=== PATIENT | female | born 1990 | race Caucasian/White ===

== ENCOUNTER → 2019-10-16 12:00 | Outpatient (BNVA) | payer OTHER, SELFPAY | PROVIDERS: Family Provider Registered Nurse; PCP Registered Nurse; Visit Provider Obstetrics & Gynecology | DX: Z01.89 Encounter for other specified special examinations (principal) | CPT/HCPCS: 84315 ==

== ENCOUNTER 2019-10-25 12:25 | Outpatient (CLI) | payer OTHER, SELFPAY ==
[2019-10-25 12:43] VITALS: BP 140/80; PULSE 104; RESP 18; TEMP 37.1
[2019-10-25 12:49] VITALS: BMI 48.7
[2019-10-25 13:13] VITALS: BP 136/73; PULSE 92
--- NOTE | 2019-10-25 13:14 | USR_ITS ---
PROCEDURE INFORMATION: Exam: US , Limited Exam date and time: 10/25/2019 2:10 PM Age: 29 years old Clinical indication: Lmp or gestational age (in weeks): 26 weeks 3 days; Other: Vaginal bleeding; ; Patient HX: H/o and d&c TECHNIQUE: Imaging protocol: Real-time ultrasound of the maternal uterus with image documentation. Exam focused on the clinical indication. COMPARISON: [place] [id number] 09/25/2018 5:41 PM FINDINGS: GESTATION: Gestation: movement is visualized. Heart rate: heart rate is 131 bpm. Presentation: position is vertex. Placenta: Placenta is posterior and fundal without evidence of previa. Amniotic fluid: Largest Pocket of amniotic Fluid measured is 6.1 x 10.9 cm. Amniotic fluid is visually normal in appearance. MATERNAL: Cervix: Cervix is not well seen. US/US OB limited [id number] IMPRESSION: Single live intrauterine fetus with a heart rate of 131 bpm in vertex position. Normal movement visualized.
[2019-10-25 13:38] LABS: Add Urine Microscopic? YES; Bilirubin Urine Neg (NEGATIVE); Blood Urine Neg (Negative); Glucose Urine UA Norm (Normal); Ketones Urine Negative (Negative); Leukocyte Esterase Urine Negative (Negative); Nitrate Urine Negative (Negative); Protein Urine Neg (Negative); Specific Gravity, Urine 1.015 (1.005-1.030); Sulfosalicylic Acid Urine Negative; Urine Appearance SL Hazy (CLEAR); Urine Color Yellow (Yellow); Urobilinogen Urine Norm (Negative); WBC Urine 0-4 /hpf (0-5); pH Urine 8 (5-7)
[2019-10-25 13:39] LABS: Bacteria Urine TRACE
[2019-10-25 13:43] VITALS: BP 124/71; PULSE 84; RESP 17
--- NOTE | 2019-10-25 13:58 | PC.NURSE ---
EFM d/c per Dr Gr order, toco left on.
[2019-10-25 14:13] VITALS: BP 121/72; PULSE 93
[2019-10-25 14:44] VITALS: BP 124/65; PULSE 92
[2019-10-25 14:50] VITALS: BP 124/65; PULSE 92; RESP 17; TEMP 37
== END 2019-10-25 14:55 | disposition home or self-care (01) ==
LOC: OPOB 12:34 → OBGYN 14:48 → OPOB 10-29 12:47
PROVIDERS: Family Provider Registered Nurse; PCP Registered Nurse; Visit Provider Obstetrics & Gynecology
DX: O46.90 Antepartum hemorrhage, unspecified, unspecified trimester (principal); Z3A.00 Weeks of gestation of pregnancy not specified
CPT/HCPCS: 76815; 81003; 99211

== ENCOUNTER → 2019-11-09 10:09 | Outpatient (BNVA) | payer OTHER, SELFPAY | PROVIDERS: Family Provider Registered Nurse; PCP Registered Nurse; Visit Provider Obstetrics & Gynecology | DX: O16.3 Unspecified maternal hypertension, third trimester (principal); O99.213 Obesity complicating pregnancy, third trimester | CPT/HCPCS: 76816; 82950; 84315; 85027 ==

== ENCOUNTER → 2019-11-23 10:02 | Outpatient (BNVA) | payer OTHER, SELFPAY | PROVIDERS: Family Provider Registered Nurse; PCP Registered Nurse; Visit Provider Obstetrics & Gynecology | DX: O99.283 Endocrine, nutritional and metabolic diseases complicating pregnancy, third trimester (principal); E03.9 Hypothyroidism, unspecified; O24.419 Gestational diabetes mellitus in pregnancy, unspecified control; Z3A.29 29 weeks gestation of pregnancy | CPT/HCPCS: 83036; 84315; 84443 ==

== ENCOUNTER → 2019-11-30 11:16 | Outpatient (BNVA) | payer OTHER, SELFPAY | PROVIDERS: Family Provider Registered Nurse; PCP Registered Nurse; Referring Provider Obstetrics & Gynecology; Visit Provider Obstetrics & Gynecology | DX: Z34.90 Encounter for supervision of normal pregnancy, unspecified, unspecified trimester (principal) | CPT/HCPCS: 76816; 76819 ==

== ENCOUNTER → 2019-12-07 09:24 | Outpatient (BNVA) | payer OTHER, SELFPAY | PROVIDERS: Family Provider Registered Nurse; PCP Registered Nurse; Visit Provider Obstetrics & Gynecology | DX: Z34.90 Encounter for supervision of normal pregnancy, unspecified, unspecified trimester (principal) | CPT/HCPCS: 76816; 76819; 84315 ==

== ENCOUNTER → 2019-12-14 09:37 | Outpatient (BNVA) | payer OTHER, SELFPAY | PROVIDERS: Family Provider Registered Nurse; PCP Registered Nurse; Visit Provider Obstetrics & Gynecology | DX: Z36.89 Encounter for other specified antenatal screening (principal) | CPT/HCPCS: 76816; 76819 ==

== ENCOUNTER → 2019-12-23 13:55 | Outpatient (BNVA) | payer OTHER, SELFPAY | PROVIDERS: Family Provider Registered Nurse; PCP Registered Nurse; Visit Provider Obstetrics & Gynecology Female Pelvic Medicine and Reconstructive Surgery | DX: O10.913 Unspecified pre-existing hypertension complicating pregnancy, third trimester (principal); Z3A.37 37 weeks gestation of pregnancy | CPT/HCPCS: 76816; 76819; 84315 ==

== ENCOUNTER 2019-12-28 14:34 | Outpatient (CLI) | payer OTHER, SELFPAY ==
--- NOTE | 2019-12-28 14:15 | US_ITS ---
WS: [id number] [place] [id number] REASON FOR EXAM: terminal carman medication use for chronic hypertension FINDINGS: The cervix measured 4.57 cm appear to be closed. Phallic presentation is seen of the fetus. heart rate 164 beats for minute. Anterior placenta is noted. Femoral length 6.96 cm 35 weeks 5 days gestation. Abdominal circumference 32.61 cm 36 weeks 4 days gestation. Biparietal diameter the head 9.22 cm 37 weeks 3 days gestation. weight estimated 3000 g (6 lbs. 10 oz.) Head circumference 33.36 cm 38 weeks 1 day gestation. Amniotic fluid indices be normal Biophysical profile 05/21 No definite deformity of the parts are seen. [place]/ [place] [id number] IMPRESSION: Interuterine 37 weeks gestation due date January 18, 2020.
== END 2019-12-28 14:35 | disposition home or self-care (01) ==
LOC: RAD 14:38
PROVIDERS: Family Provider Registered Nurse; PCP Registered Nurse; Visit Provider Obstetrics & Gynecology Female Pelvic Medicine and Reconstructive Surgery
DX: O10.913 Unspecified pre-existing hypertension complicating pregnancy, third trimester (principal); Z3A.37 37 weeks gestation of pregnancy
CPT/HCPCS: 76816

== ENCOUNTER → 2020-01-04 08:19 | Outpatient (BNVA) | payer OTHER, SELFPAY | PROVIDERS: Family Provider Registered Nurse; PCP Registered Nurse; Visit Provider Obstetrics & Gynecology | DX: O10.919 Unspecified pre-existing hypertension complicating pregnancy, unspecified trimester (principal) | CPT/HCPCS: 76816; 76819; 84315; 87081 ==

== ENCOUNTER → 2020-01-07 10:26 | Outpatient (BNVA) | payer OTHER, SELFPAY | PROVIDERS: Family Provider Registered Nurse; PCP Registered Nurse; Visit Provider Obstetrics & Gynecology | DX: O24.410 Gestational diabetes mellitus in pregnancy, diet controlled (principal); O09.893 Supervision of other high risk pregnancies, third trimester; O99.213 Obesity complicating pregnancy, third trimester; O99.343 Other mental disorders complicating pregnancy, third trimester | CPT/HCPCS: 76816; 76819 ==

== ENCOUNTER 2020-01-10 17:18 | Outpatient (CLI) | payer OTHER, SELFPAY ==
[2020-01-10 17:38] VITALS: BP 131/72; PULSE 104
[2020-01-10 17:44] VITALS: BMI 48.6
[2020-01-10 17:52] VITALS: BP 146/85; PULSE 91
[2020-01-10 18:07] VITALS: BP 0/0
[2020-01-10 18:13] VITALS: BP 146/85; PULSE 91; RESP 18; TEMP 37
== END 2020-01-10 18:10 | disposition home or self-care (01) ==
LOC: OPOB 17:21 → OBGYN 18:03 → OPOB 01-11 09:00
PROVIDERS: Family Provider Registered Nurse; PCP Registered Nurse; Visit Provider Obstetrics & Gynecology Female Pelvic Medicine and Reconstructive Surgery
DX: O26.899 Other specified pregnancy related conditions, unspecified trimester (principal); Z3A.00 Weeks of gestation of pregnancy not specified; N89.8 Other specified noninflammatory disorders of vagina
CPT/HCPCS: 59025; 83986; 99211

== ENCOUNTER → 2020-01-11 09:01 | Outpatient (BNVA) | payer OTHER, SELFPAY | PROVIDERS: Family Provider Registered Nurse; PCP Registered Nurse; Visit Provider Obstetrics & Gynecology | DX: O10.013 Pre-existing essential hypertension complicating pregnancy, third trimester (principal) | CPT/HCPCS: 76816; 76819; 84315 ==

== ENCOUNTER 2020-01-17 14:03 | Outpatient (CLI) | payer OTHER, SELFPAY ==
[2020-01-17 14:15] VITALS: BMI 48.0
[2020-01-17 14:19] VITALS: BP 129/85; PULSE 107
[2020-01-17 14:49] VITALS: BP 126/76; PULSE 97
[2020-01-17 15:00] VITALS: BP 126/76; PULSE 107; RESP 18; TEMP 36.7
== END 2020-01-17 15:00 | disposition home or self-care (01) ==
LOC: OPOB 14:04 → OBGYN 14:14
PROVIDERS: Absent Provider Obstetrics & Gynecology; Family Provider Registered Nurse; PCP Obstetrics & Gynecology; Visit Provider Obstetrics & Gynecology
DX: O26.899 Other specified pregnancy related conditions, unspecified trimester (principal); Z3A.00 Weeks of gestation of pregnancy not specified; R10.9 Unspecified abdominal pain
CPT/HCPCS: 99211

== ENCOUNTER → 2020-01-18 09:17 | Outpatient (BNVA) | payer OTHER, SELFPAY | PROVIDERS: Family Provider Registered Nurse; PCP Obstetrics & Gynecology; Visit Provider Obstetrics & Gynecology | DX: O10.013 Pre-existing essential hypertension complicating pregnancy, third trimester (principal); O24.410 Gestational diabetes mellitus in pregnancy, diet controlled; O99.213 Obesity complicating pregnancy, third trimester | CPT/HCPCS: 76816; 76819; 80053; 81001; 82570; 84157; 84315; 84550; 85025 ==

== ENCOUNTER 2020-01-20 07:24 | Inpatient (IN) | payer OTHER, SELFPAY ==
[2020-01-20] VITALS (67 sets, daily range): BP systolic 0–154; BP diastolic 0–83; PULSE 67–114; RESP 18; TEMP 36.8–37.3; O2SAT 96–99; BMI 47.9
[2020-01-20] MEDS: oxytocin 30 UNIT/500 ML BAG IV (08:00)
[2020-01-20] MEDS: lactated ringers 1,000 ML 999 ML IV (08:02)
[2020-01-20 08:10] LABS: Glucose Point of Care 95 mg/dL (70-110)
[2020-01-20 08:20] LABS: Basophils % 0.2 %; Eosinophils % 0.4 %; Hemoglobin 10.8 g/dL (11.5-15.3); Lymphocytes # 2.1 10^3/uL (0.8-4.8); Lymphocytes % 21.7 %; Mean Corpuscular HGB Conc 30.9 g/dL (30.0-36.0); Mean Corpuscular Volume 77.8 fL (81-99); Mean Platelet Volume 11.5 fL (7.4-10.4); Monocytes # 0.8 10^3/uL (0.2-0.9); Monocytes % 7.7 %; Neutrophils # 6.8 10^3/uL (1.8-7.7); Neutrophils % 69.7 %; Nucleated Red Blood Cells % 0 %; Platelet Count 273 10^3/cmm (130-400); Red Cell Distribution Width 15.3 % (12.1-15.1); White Blood Count 9.8 10^3/uL (4.0-10.0)
[2020-01-20] MEDS: lactated ringers 1,000 ML 125 ML IV (08:57)
[2020-01-20 09:49] LABS: Alanine Aminotransferase 22 U/L (0-33); Albumin Level 3.5 g/dL (3.5-5.2); Alkaline Phosphatase 184 IU/L (35-105); Anion Gap 17.8 (5-19); Aspartate Amino Transferase 25 U/L (0-32); Blood Urea Nitrogen 8 mg/dL (6-20); Calcium 9.6 mg/dL (8.5-10.5); Carbon Dioxide 19 mmol/L (22-29); Chloride 105 mmol/L (98-107); Globulin 3.6 g/dL (1.3-4.6); Glucose 99 mg/dL (65-115); Osmolality Calculated 282 mOsm/kg (285-295); Potassium 3.8 mmol/L (3.5-5.1); Sodium 138 mmol/L (136-145); Total Bilirubin 0.6 mg/dL (0.15-1.2); Total Protein 7.1 g/dL (6.6-8.7); Uric Acid 4.9 mg/dL (2.4-5.7)
[2020-01-20] MEDS: dextrose 5%-lactated ringers 1,000 ML 125 ML IV (09:58)
[2020-01-20 10:24] LABS: Glucose Point of Care 102 mg/dL (70-110)
[2020-01-20 10:59] LABS: Urine Creatinine 86 mg/dL (28-217); Urine Protein Random 8 mg/dL
[2020-01-20 11:00] LABS: UPRO/UCREAT Ratio 0.09 mg/mg CR
[2020-01-20 12:23] LABS: Glucose Point of Care 93 mg/dL (70-110)
--- NOTE | 2020-01-20 13:58 | PM.DELIVERY ---
 Delivery Note: Date of delivery: January 20, 2020 Pre-delivery diagnoses: 29-year-old 5 para 3-0-1-3 at 38 weeks and 6 days Chronic hypertension well-controlled on labetalol 200 mg twice daily Hypothyroidism on medication Gestational diabetic-diet controlled Previous delivery x1-desires Obesity-class III-BMI 47 Depression-not currently on medication Post-delivery diagnoses: Vaginal after on 01/20/2020 Hypothyroidism Chronic hypertension Procedure: Vaginal after on 01/20/2020 Op report anesthesia: Epidural Delivering Physician: Dr. Dunn Pre-Delivery Course: Ms. Jenkins is a 29-year-old 5 para 3-0-1-3 at 38 weeks and 6 days gestation who presented to labor and delivery on 01/20/2020 at 7 AM for scheduled induction of labor. She is a chronic hypertensive controlled on 200 mg of labetalol twice daily as well as having gestational diabetes with diet control. She also has hypothyroidism on medication as well as depression not on medication. Her history significant for previous delivery followed by successful and she desired to have trial of labor with this . Induction was because of chronic hypertension with diabetes. -On presentation to labor and delivery on 01/20/2020 she reported having some contractions but was overall comfortable and had no complaints. She had taken her aspirin labetalol and thyroid medicines prior to arrival. Vital signs were normal upon admission and tracing was category 1. Cervix was noted to be 6 cm, 70% and -2 station. She was having occasional contractions. She was admitted and preeclamptic lab work done which was negative. She was noted to be anemic with a hemoglobin of 10.8. Induction was started at 8 AM with Pitocin titrated to a maximum of 8 mIU. She had desired to get an epidural which was placed soon after admission. She was comfortable. tracing remained category 1 without any decelerations. Artificial rupture of membranes was performed at 12:18 PM with clear fluid at which point she was 8 to 9 cm, 80% and -2 station. She was fully dilated at 12:40 PM And placed in lithotomy ready to push. tracing remained category 1 Delivery: She was set up in lithotomy position and was pushing effectively. She was noted to be +3 station and continued pushing well. The head delivered in SHAKIR position, nuchal cord x1 was present however it was unable to be reduced. The shoulders and rest of the body followed with her next push and delivered through the nuchal cord without any difficulty. The baby's mouth and nose were suctioned and the baby was placed on the mother's belly. Once cord pulsations stopped the cord was clamped and cut. Placenta delivered spontaneously intact with membranes and was discarded. The fundus was noted to be firm and well contracted. The vagina and cervix were inspected and no cervical or sulcal lacerations were noted. The perineum was noted to be intact Baby girl, Christiana born at 12:57 PM on 01/20/2020 with 8/9, weighing 8 pounds 5 ounces, 3718 g, 20 inches long. Placenta was delivered spontaneously intact with membranes at 1:04 PM. Cotyledons were intact , centrally inserted umbilical cord with 3 vessels noted. Estimated blood loss 200 mL. Complications-none, both baby and mother were left to recovery in a stable condition Post-Delivery Status: Stable. A&P Assessment and plan (1) Supervision of other high risk pregnancies, third trimester: Status: Acute (2) Pre-existing essential hypertension complicating , third trimester: Status: Acute (3) Diabetes in : Status: Acute Qualifiers: Diabetes in type: gestational Gestational diabetes mellitus control: diet-controlled Trimester: third trimester Qualified Code(s): O24.410 - Gestational diabetes mellitus in , diet controlled (4) Maternal care for unspecified type scar from previous delivery: Status: Acute Qualifiers: Previous delivery type: low transverse Qualified Code(s): O34.211 - Maternal care for low transverse scar from previous delivery (5) Mental disorder affecting : Status: Acute Qualifiers: Trimester: third trimester Qualified Code(s): O99.343 - Other mental disorders complicating , third trimester (6) Hypothyroidism affecting : Status: Acute Qualifiers: Trimester: third trimester Qualified Code(s): O99.283 - Endocrine, nutritional and metabolic diseases complicating , third trimester; E03.9 - Hypothyroidism, unspecified (7) Obesity affecting : Status: Acute Qualifiers: Trimester: third trimester Qualified Code(s): O99.213 - Obesity complicating , third trimester Coding Level of Care 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
--- NOTE | 2020-01-20 17:22 | PC.NURSE ---
Patient using bed sullivan at this time, due to numbness from epidural.
[2020-01-20] MEDS: docusate sodium 100 mg Capsule PO (18:20)
[2020-01-20] MEDS: labetalol 200 mg Tablet PO (18:20)
[2020-01-20] MEDS: HYDROcodone-acetaminophen 5-325 mg Tablet PO (19:14)
[2020-01-20] MEDS: lanolin oint 7 gm 1 APPLIC TOPICAL (21:05)
[2020-01-20] MEDS: benzocaine-menthol 78 gm Canister 1 SPRAY TOPICAL (21:06)
[2020-01-21] MEDS: HYDROcodone-acetaminophen 5-325 mg Tablet PO (01:05)
[2020-01-21 03:00] VITALS: BP 121/79; PULSE 98; RESP 18; O2SAT 97
[2020-01-21 03:19] LABS: Hematocrit 33.1 % (37.0-47.0); Hemoglobin 10.1 g/dL (11.5-15.3); Mean Corpuscular HGB Conc 30.5 g/dL (30.0-36.0); Mean Corpuscular Hemoglobin 23.7 pg (28.0-34.0); Mean Corpuscular Volume 77.7 fL (81-99); Mean Platelet Volume 11.6 fL (7.4-10.4); Platelet Count 250 10^3/cmm (130-400); Red Blood Count 4.26 10^6/uL (4.1-5.3); Red Cell Distribution Width 15.3 % (12.1-15.1); White Blood Count 10.4 10^3/uL (4.0-10.0)
[2020-01-21] MEDS: levothyroxine 150 mcg Tablet 75 MCG PO (09:30)
[2020-01-21] MEDS: prenatal vitamin Capsule 1 CAP PO (09:30)
[2020-01-21] MEDS: docusate sodium 100 mg Capsule PO (09:30)
[2020-01-21] MEDS: labetalol 200 mg Tablet PO (09:31)
[2020-01-21 09:35] VITALS: BP 119/87; PULSE 109; RESP 17; TEMP 36.4
--- NOTE | 2020-01-21 13:39 | P.DS_ITS ---
Discharge Providers Date of Admission: 01/20/20 07:24 Date of Discharge: January 21, 2020 Attending Provider at Admission: Hal Kruger MD Attending Provider at Discharge: Hal Kruger MD Primary Care Provider: Nick Barragan MD Diagnoses at Discharge Discharge Diagnosis (1) Supervision of other high risk pregnancies, third trimester: Status: Acute (2) Pre-existing essential hypertension complicating , third trimester: Status: Acute (3) Diabetes in : Status: Acute Qualifiers: Diabetes in type: gestational Gestational diabetes mellitus control: diet-controlled Trimester: third trimester Qualified Code(s): O24.410 - Gestational diabetes mellitus in , diet controlled (4) Maternal care for unspecified type scar from previous delivery: Status: Acute Qualifiers: Previous delivery type: low transverse Qualified Code(s): O34.211 - Maternal care for low transverse scar from previous delivery (5) Mental disorder affecting : Status: Acute Qualifiers: Trimester: third trimester Qualified Code(s): O99.343 - Other mental disorders complicating , third trimester (6) Hypothyroidism affecting : Status: Acute Qualifiers: Trimester: third trimester Qualified Code(s): O99.283 - Endocrine, nutritional and metabolic diseases complicating , third trimester; E03.9 - Hypothyroidism, unspecified (7) Obesity affecting : Status: Acute Qualifiers: Trimester: third trimester Qualified Code(s): O99.213 - Obesity complicating , third trimester Reason for Visit Reason for Visit: Reason For Visit: INDUCTION Hospital Course Hospital Course: Admission diagnosis 29-year-old 5 para 3-0-1-3 at 38 weeks and 6 days Chronic hypertension well-controlled on labetalol 200 mg twice daily Hypothyroidism on medication Gestational diabetic-diet controlled Previous delivery x1-desires Obesity-class III-BMI 47 Depression-not currently on medication Ms. Jenkins is a 29-year-old 5 para 3-0-1-3 at 38 weeks and 6 days gestation who presented to labor and delivery on 01/20/2020 at 7 AM for scheduled induction of labor. She is a chronic hypertensive controlled on 200 mg of labetalol twice daily as well as having gestational diabetes with diet control. She also has hypothyroidism on medication as well as depression not on medication. Her history significant for previous delivery followed by successful and she desired to have trial of labor with this . Induction was because of chronic hypertension with diabetes. -On presentation to labor and delivery on 01/20/2020 she reported having some contractions but was overall comfortable and had no complaints. She had taken her aspirin labetalol and thyroid medicines prior to arrival. Vital signs were normal upon admission and tracing was category 1. Cervix was noted to be 6 cm, 70% and -2 station. She was having occasional contractions. She was admitted and preeclamptic lab work done which was negative. She was noted to be anemic with a hemoglobin of 10.8. Induction was started at 8 AM with Pitocin titrated to a maximum of 8 mIU. She had desired to get an epidural which was placed soon after admission. She was comfortable. tracing remained category 1 without any decelerations. Artificial rupture of membranes was performed at 12:18 PM with clear fluid at which point she was 8 to 9 cm, 80% and -2 station. She was fully dilated at 12:40 PM And placed in lithotomy ready to push. tracing remained category 1 Discharge Summary: She underwent an uncomplicated vaginal after C- section on 01/21/2020. She did well on day 0 and was ambulating well, tolerating regular diet, voiding freely, passing flatus. She was breast-feeding without difficulty and bonding well with her daughter. Pain was well-controlled with by mouth pain medication. She denied nausea, vomiting, fever, chills, shortness of breath, leg pain. She had moderate vaginal bleeding. On day # 1 she continued to do well with stable vital signs and stable hemoglobin at 10.1. She was discharged home on day 1 in a stable condition as she desired early discharge. Warning signs for endometritis, mastitis, DVT/PE were reviewed with her. Post delivery activity restrictions were also reviewed with her at all her questions were answered to her satisfaction. Her plans on having a vasectomy for contraception Physical Exam Narrative: EXAM NARRATIVE: Gen.: No acute distress Heart: S1-S2 heard, regular rate and rhythm Lungs: Clear to auscultation bilaterally Abdomen: Soft, fundus firm below umbilicus Legs: No calf tenderness, +1 bilateral pitting pedal edema. Urinary Catheter Management^: Gonzalez: Cath Placed During This Visit: yes, but has since been removed by the nurse Reason for Continuing Indwelling Catheter: Decision to DC Catheter Urinary Catheter Date of Insertion: 01/20/20 Urinary Catheter Time of Insertion: 09:08 Date Urinary Catheter Removed: 01/20/20 Time Urinary Catheter Discontinued: 12:50 Discharge Data Data Completed and Pending: Labs from last 24 hours 01/21/20 02:15 WBC 10.4 H RBC 4.26 Hgb 10.1 L Hct 33.1 L MCV 77.7 L MCH 23.7 L MCHC 30.5 RDW 15.3 H Plt Count 250 MPV 11.6 H Vitals: Last Vital Signs Temp 97.5 F L 01/21/20 09:35 Pulse 109 H 01/21/20 09:35 Resp 17 01/21/20 09:35 BP 119/87 01/21/20 09:35 Pulse Ox 97 01/21/20 03:00 Discharge Plan Discharge Patient Disposition: Home, Self-Care Condition: Stable Prescriptions: Continued labetalol 200 mg tablet 200 mg PO BID Qty: 60 RF: 3 levothyroxine 75 mcg Tablet 75 mcg PO DAILY RF: 0 Vitamin 27 mg iron- 800 mcg Tablet 1 tab PO DAILY RF: 0 Discontinued (DME) ReliOn Prime Test Strips Strip See Rx Instructions .ROUTE .MEDSUPPLY Qty: 200 RF: 3 (DME) lancets [ReliOn Ultra Thin Plus Lancets] Misc See Rx Instructions .ROUTE .MEDSUPPLY Qty: 200 RF: 3 aspirin 81 mg Tablet,Delayed Release (Dr/Ec) 81 mg PO DAILY RF: 0 Discharge Orders: Discharge Order (Routine); Ordered 01/21/20 Ordered By: Hal Kruger Referrals: Hal Kruger MD [Physician] - (1 week blood pressure check-telehealth 6-week with Dr. 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
[2020-01-21 14:26] VITALS: BP 125/88; PULSE 83; RESP 16; TEMP 36.8
[2020-01-21 14:33] VITALS: BP 125/88; PULSE 83; RESP 16; TEMP 36.8
== END 2020-01-21 15:00 | disposition home or self-care (01) | DRG 807 ==
PROVIDERS: Admitting Provider Obstetrics & Gynecology; Family Provider Registered Nurse; PCP Obstetrics & Gynecology; Visit Provider Obstetrics & Gynecology
DX: O13.4 Gestational [pregnancy-induced] hypertension without significant proteinuria, complicating childbirth (principal); Z37.0 Single live birth; Z3A.38 38 weeks gestation of pregnancy; O99.284 Endocrine, nutritional and metabolic diseases complicating childbirth; O99.214 Obesity complicating childbirth; O99.344 Other mental disorders complicating childbirth; O24.420 Gestational diabetes mellitus in childbirth, diet controlled; E03.9 Hypothyroidism, unspecified; O34.211 Maternal care for low transverse scar from previous cesarean delivery; N85.8 Other specified noninflammatory disorders of uterus; F32.9 Major depressive disorder, single episode, unspecified; O69.81X0 Labor and delivery complicated by cord around neck, without compression, not applicable or unspecified
CPT/HCPCS: 12345; 36415; 36416; 51702; 59409; 80053; 82570; 82962; 84156; 84550; 85025; 85027; 86850; 86900; 99211; J2795

== ENCOUNTER → 2020-02-12 11:18 | Outpatient (BNVA) | payer OTHER, SELFPAY | PROVIDERS: Family Provider Registered Nurse; PCP Obstetrics & Gynecology; Visit Provider Registered Nurse | DX: E03.9 Hypothyroidism, unspecified (principal); O16.5 Unspecified maternal hypertension, complicating the puerperium | CPT/HCPCS: 80053; 84443; 85025 ==

== ENCOUNTER → 2020-03-14 08:05 | Outpatient (BNVA) | payer OTHER, SELFPAY | PROVIDERS: Family Provider Registered Nurse; PCP Obstetrics & Gynecology; Visit Provider Obstetrics & Gynecology | DX: O24.439 Gestational diabetes mellitus in the puerperium, unspecified control (principal); I10 Essential (primary) hypertension; E03.9 Hypothyroidism, unspecified | CPT/HCPCS: 82947; 84443 ==

== ENCOUNTER 2020-05-30 22:13 | Emergency (ER) | payer OTHER, SELFPAY ==
[2020-05-30 22:26] VITALS: BP 119/76; PULSE 103; RESP 17; TEMP 36.7; O2SAT 98; BMI 43.0
[2020-05-30 23:17] LABS: Add Urine Microscopic? YES; Bacteria Urine 1+; Bilirubin Urine Neg (NEGATIVE); Blood Urine Neg (Negative); Glucose Urine UA Norm (Normal); Ketones Urine Negative (Negative); Leukocyte Esterase Urine Negative (Negative); Nitrate Urine Negative (Negative); Protein Urine Neg (Negative); RBC Urine 0-4 /hpf (0-2); Squamous Epithelial Cell Urine 25-40 (0-5); Urine Appearance SL Hazy (CLEAR); Urine Color Yellow (Yellow); Urobilinogen Urine Norm (Negative); pH Urine 5 (5-7)
[2020-05-30 23:18] LABS: HCG Qualitative Urine. Negative (Negative)
[2020-05-30 23:21] LABS: Basophils # 0.1 10^3/uL (0.0-0.1); Basophils % 0.3 %; Eosinophils # 0.5 10^3/uL (0.0-0.8); Eosinophils % 3.3 %; Hematocrit 43.4 % (37.0-47.0); Hemoglobin 13.6 g/dL (11.5-15.3); Lymphocytes % 13.5 %; Mean Corpuscular HGB Conc 31.3 g/dL (30.0-36.0); Mean Corpuscular Hemoglobin 26.8 pg (28.0-34.0); Mean Corpuscular Volume 85.4 fL (81-99); Mean Platelet Volume 9.8 fL (7.4-10.4); Monocytes # 0.8 10^3/uL (0.2-0.9); Monocytes % 5.5 %; Neutrophils # 11.29 10^3/uL (1.8-7.7); Neutrophils % 77.1 %; Nucleated Red Blood Cells % 0 %; Platelet Count 344 10^3/cmm (130-400); Red Blood Count 5.08 10^6/uL (4.1-5.3); Red Cell Distribution Width 13.6 % (12.1-15.1); White Blood Count 14.6 10^3/uL (4.0-10.0)
--- NOTE | 2020-05-30 23:22 | CTR_ITS ---
PROCEDURE INFORMATION: Exam: CT Abdomen And Pelvis With Contrast Exam date and time: 05/30/2020 11:25 PM Age: 29 years old Clinical indication: Nausea and vomiting; Abdominal pain; Localized; Right upper quadrant (ruq); Additional info: Abd pain TECHNIQUE: Imaging protocol: Computed tomography of the abdomen and pelvis with intravenous contrast. Axial, coronal and sagittal reformatted images were created and reviewed. Radiation optimization: All CT scans at this facility use at least one of these dose optimization techniques: automated exposure control; mA and/or kV adjustment per patient size (includes targeted exams where dose is matched to clinical indication); or iterative reconstruction. Contrast material: OMNI 300; Contrast volume: 95 ml; Contrast route: INTRAVENOUS (IV); COMPARISON: US Pelvis Lmt w TV [id number] 09/27/2018 12:34 PM RADIATION DOSE METRICS: Total DLP (mGy-cm): 3268.87 FINDINGS: Liver: Unremarkable. Gallbladder and bile ducts: No radiodense gallstones. No biliary ductal dilatation. Pancreas: Unremarkable. Spleen: Unremarkable. Adrenals: Unremarkable. Kidneys and ureters: 4.8 x 3.9 cm simple left renal cyst (no follow-up is indicated based on the imaging appearance). No radiodense calculi. No hydronephrosis. Stomach and bowel: No bowel wall thickening. No obstruction. No pneumatosis. Appendix: Normal. Intraperitoneal space: No free fluid. No organized fluid collection. No free air. Vasculature: Unremarkable. No aneurysm. Lymph nodes: Small mesenteric lymph nodes, some of which are clustered along the right psoas musculature. No pathologically enlarged lymph nodes. Bladder: Unremarkable. Reproductive: Unremarkable. Bones/joints: No acute osseous abnormality. Soft tissues: Small, fat containing umbilical hernia. CT/CT abdomen pelvis w con* [id number]: 1[address] No CT evidence of acute intra-abdominal or pelvic pathology. 2. Additional findings, as above. COMMENTS: Consistent with the [employer]'s Incidental Findings Committee white paper (J Am Destin Radiol 2018): Any incidental renal lesion less than 1.0 cm or classified as too small to characterize, or any incidental cystic renal lesion characterized as simple-appearing, is likely benign. No follow-up imaging is recommended for these lesions per consensus recommendations based on imaging criteria. Radiation Dose CTDIVOL = (mGy): DLP = 3268.87 (mGy-cm)
--- NOTE | 2020-05-30 23:24 | W.ED.ABDPA2 ---
HPI - Abdominal Pain General: Chief Complaint: Abdominal Pain Stated Complaint: UPPER ABD PAIN Time Seen by Provider: 05/30/20 23:12 Source: patient Mode of arrival: ambulatory Limitations: no limitations History of Present Illness: HPI narrative: 21-year-old female states over the last week she has been having diffuse abdominal pain with vomiting and diarrhea. States her pain is crampy in nature and rates it a 7 out of 10. She denies any fevers. She denies any recent illnesses. Denies any worsening or improving factors. MD elicited complaint: abdominal pain Pertinent past history: none Onset (ago): day(s) Pain Consistency: constant Location: Diffuse Severity: moderate Quality: cramping Radiation: none Migration to: no migration Exacerbating factors: nothing Relieving factors: nothing Associated Symptoms: Reports diarrhea, nausea and vomiting; Denies chills, dysuria and fever(s) Review of Systems Const: Denies: fever(s), chills, body aches or change in appetite Eyes: Denies: blurry vision or eye discomfort ENMT: Denies: throat pain or dental pain Card: Denies: chest pain Resp: Denies: dyspnea GI: Reports: abdominal pain, nausea, vomiting and diarrhea : Denies: dysuria Musc: Denies: neck pain or back pain Skin/Breast: Denies: rash Neuro: Denies: headache(s) Psych: Denies: depression Chris/Lymph: Denies: easy bruising All/Imm: Denies: urticaria PFSH ED PFSH: Medical History Depression History of gestational diabetes Had GDM in fourth of Hypothyroidism, acquired Obesity Surgical History History of arthroscopy of knee (05/02/11) Performed by Dr. Peraza at [facility] in [place], [place] History of section, low transverse (08/28/15) PLTCS. Dx: CPD large fetus (10 lb 1 oz). [address] Barragan at [facility] in [place], [place]. Documented LTCS with b/l inferior extensions. 2 layer closure. History of dilation and curettage (09/27/18) Diagnosis: Incomplete at [address] Gr at [facility] in [place], [place]. History of tonsillectomy and adenoidectomy (12/01/01) Family History Mother Hypertension Diabetes Family/Other Diabetes paternal aunt Grandfather Heart disease maternal Grandmother Thyroid disease maternal Social History Smoking and tobacco status: never smoked Alcohol intake: never Physical Exam Const: COMMON NORMALS: no acute distress, patient oriented x3 and healthy appearing HENMT: COMMON NORMALS: normocephalic and atraumatic HEAD & SCALP: normocephalic and atraumatic Eye: COMMON NORMALS: Equal, round and reactive pupils present and EOMs intact bilaterally PUPIL: Yes Equal, round and reactive pupils present Neck/C-Spine: COMMON NORMALS: full ROM and supple Chest: COMMONS NORMALS: normal inspection of the chest and normal palpation of entire chest wall Resp: COMMON NORMALS: normal respiratory effort, No retractions, No use of accessory muscles and clear to auscultation bilaterally AUSCULTATION: clear to auscultation bilaterally Cardio: COMMON NORMALS: regular rate, regular rhythm and No murmurs present (Cardio) RATE: regular rate RHYTHM: regular rhythm GI: COMMON NORMALS: Normal to inspection, nondistended, normoactive bowel sounds present, Soft to palpation, non-tender and no masses PALPATION: Yes Soft to palpation Extremity: COMMON NORMALS: normal to inspection and full ROM Neuro: COMMON NORMALS: patient oriented x3, moves all extremities and no focal motor deficits Psych: COMMON NORMALS: mental status grossly normal, Normal thought process present and cooperative THOUGHT PROCESS: Normal thought process present Skin: COMMON NORMALS: no rashes or lesions noted and no wounds GENERAL SKIN EXAM: no rashes or lesions noted Course Vital Signs: Vital signs: Vital Signs Temperature 98.0 F 05/30/20 22:26 Pulse Rate 103 H 05/30/20 22:26 Respiratory Rate 12 05/30/20 23:48 Blood Pressure 119/76 05/30/20 22:26 Pulse Oximetry 98 05/30/20 23:48 MDM - Abdominal Pain MDM Narrative: Medical decision making narrative: Patient presents here with abdominal pain along with vomiting and diarrhea. Patient is well-appearing here and CT scan is normal. Patient did give a stool sample and will follow cultures. Patient is stable for discharge and return if worsening. Patient is to take Imodium along with Zofran. Lab Data: Labs: Lab Results 05/30/20 05/30/20 05/30/20 Range/Units 22:52 22:52 23:11 WBC 14.6 H (4.0-10.0) 10^3/ uL RBC 5.08 (4.1-5.3) 10^6/u L Hgb 13.6 (11.5-15.3) g/dL Hct 43.4 (37.0-47.0) % MCV 85.4 (81-99) fL MCH 26.8 L (28.0-34.0) pg MCHC 31.3 (30.0-36.0) g/dL RDW 13.6 (12.1-15.1) % Plt Count 344 (130-400) 10^3/c mm MPV 9.8 (7.4-10.4) fL Neut % (Auto) 77.1 % Lymph % (Auto) 13.5 % Karnes % (Auto) 5.5 % Eos % (Auto) 3.3 % Baso % (Auto) 0.3 % Neut # (Auto) 11.29 H (1.8-7.7) 10^3/u L Lymph # (Auto) 2.0 (0.8-4.8) 10^3/u L Karnes # (Auto) 0.8 (0.2-0.9) 10^3/u L Eos # (Auto) 0.5 (0.0-0.8) 10^3/u L Baso # (Auto) 0.1 (0.0-0.1) 10^3/u L Nucleated RBC % (a uto) 0 % Nucleated RBCs # 0.0 /100WBC Sodium (136-145) mmol/L Potassium (3.5-5.1) mmol/L Chloride (98-107) mmol/L Carbon Dioxide (22-29) mmol/L Anion Gap (5-19) BUN (6-20) mg/dL Creatinine (0.5-0.9) mg/dL GFR Calculation (90-130) mL/min Glucose (65-115) mg/dL Calculated Osmolal ity (285-295) mOsm/k g Calcium (8.5-10.5) mg/dL Total Bilirubin (0.15-1.2) mg/dL AST (0-32) U/L ALT (0-33) U/L Alkaline Phosphata se (35-105) IU/L Total Protein (6.6-8.7) g/dL Albumin (3.5-5.2) g/dL Globulin (1.3-4.6) g/dL Lipase (13-60) U/L HCG, Qual Negative (Negative) Urine Color Yellow (Yellow) Urine Appearance Sl hazy (CLEAR) Urine pH 5 (5-7) Ur Specific Gravit y 1.030 (1.005-1.030) Urine Protein Neg (Negative) Urine Glucose (UA) Norm (Normal) Urine Ketones Negative (Negative) Urine Blood Neg (Negative) Urine Nitrate Negative (Negative) Urine Bilirubin Neg (NEGATIVE) Urine Urobilinogen Norm (Negative) mg/dL Ur Leukocyte Dottie ase Negative (Negative) Urine RBC 0-4 H (0-2) /hpf Urine WBC 10-15 H (0-5) /hpf Ur Squamous Epith Cells 25-40 H (0-5) Amorphous Sediment Not Reportable Urine Bacteria 1+ H (NONE) 05/30/20 Range/Units 23:11 WBC (4.0-10.0) 10^3/ uL RBC (4.1-5.3) 10^6/u L Hgb (11.5-15.3) g/dL Hct (37.0-47.0) % MCV (81-99) fL MCH (28.0-34.0) pg MCHC (30.0-36.0) g/dL RDW (12.1-15.1) % Plt Count (130-400) 10^3/c mm MPV (7.4-10.4) fL Neut % (Auto) % Lymph % (Auto) % Karnes % (Auto) % Eos % (Auto) % Baso % (Auto) % Neut # (Auto) (1.8-7.7) 10^3/u L Lymph # (Auto) (0.8-4.8) 10^3/u L Karnes # (Auto) (0.2-0.9) 10^3/u L Eos # (Auto) (0.0-0.8) 10^3/u L Baso # (Auto) (0.0-0.1) 10^3/u L Nucleated RBC % (a uto) % Nucleated RBCs # /100WBC Sodium 140 (136-145) mmol/L Potassium 4.5 (3.5-5.1) mmol/L Chloride 105 (98-107) mmol/L Carbon Dioxide 25 (22-29) mmol/L Anion Gap 14.5 (5-19) BUN 19 (6-20) mg/dL Creatinine 0.8 (0.5-0.9) mg/dL GFR Calculation 85.4 L (90-130) mL/min Glucose 106 (65-115) mg/dL Calculated Osmolal ity 287 (285-295) mOsm/k g Calcium 9.4 (8.5-10.5) mg/dL Total Bilirubin 0.7 (0.15-1.2) mg/dL AST 17 (0-32) U/L ALT 22 (0-33) U/L Alkaline Phosphata se 115 H (35-105) IU/L Total Protein 8.3 (6.6-8.7) g/dL Albumin 4.7 (3.5-5.2) g/dL Globulin 3.6 (1.3-4.6) g/dL Lipase 28 (13-60) U/L HCG, Qual (Negative) Urine Color (Yellow) Urine Appearance (CLEAR) Urine pH (5-7) Ur Specific Gravit y (1.005-1.030) Urine Protein (Negative) Urine Glucose (UA) (Normal) Urine Ketones (Negative) Urine Blood (Negative) Urine Nitrate (Negative) Urine Bilirubin (NEGATIVE) Urine Urobilinogen (Negative) mg/dL Ur Leukocyte Dottie ase (Negative) Urine RBC (0-2) /hpf Urine WBC (0-5) /hpf Ur Squamous Epith Cells (0-5) Amorphous Sediment Urine Bacteria (NONE) Imaging Data ^: CT Abd/Pel: Radiologist's impression: [address] [address] [address] Scan Report Signed Patient: Jeanette Jenkins Unit #: [id number] : 1990 Age/Sex: 29 / F ADM Date: 05/30/20 Loc: ER Room/Bed: Attending Dr: Ordering Provider/Ordering MD: Daljit Gibson MD Date of Service: 05/30/20 Procedure(s): CT abdomen pelvis w con* [id number] Accession Number(s): [id number] Report Number: [id number] PROCEDURE INFORMATION: Exam: CT Abdomen And Pelvis With Contrast Exam date and time: 05/30/2020 11:25 PM Age: 29 years old Clinical indication: Nausea and vomiting; Abdominal pain; Localized; Right upper quadrant (ruq); Additional info: Abd pain TECHNIQUE: Imaging protocol: Computed tomography of the abdomen and pelvis with intravenous contrast. Axial, coronal and sagittal reformatted images were created and reviewed. Radiation optimization: All CT scans at this facility use at least one of these dose optimization techniques: automated exposure control; mA and/or kV adjustment per patient size (includes targeted exams where dose is matched to clinical indication); or iterative reconstruction. Contrast material: OMNI 300; Contrast volume: 95 ml; Contrast route: INTRAVENOUS (IV); COMPARISON: US Pelvis Lmt w TV [id number] 09/27/2018 12:34 PM RADIATION DOSE METRICS: Total DLP (mGy-cm): 3268.87 FINDINGS: Liver: Unremarkable. Gallbladder and bile ducts: No radiodense gallstones. No biliary ductal dilatation. Pancreas: Unremarkable. Spleen: Unremarkable. Adrenals: Unremarkable. Kidneys and ureters: 4.8 x 3.9 cm simple left renal cyst (no follow-up is indicated based on the imaging appearance). No radiodense calculi. No hydronephrosis. Stomach and bowel: No bowel wall thickening. No obstruction. No pneumatosis. Appendix: Normal. Intraperitoneal space: No free fluid. No organized fluid collection. No free air. Vasculature: Unremarkable. No aneurysm. Lymph nodes: Small mesenteric lymph nodes, some of which are clustered along the right psoas musculature. No pathologically enlarged lymph nodes. Bladder: Unremarkable. Reproductive: Unremarkable. Bones/joints: No acute osseous abnormality. Soft tissues: Small, fat containing umbilical hernia. CT/CT abdomen pelvis w con* [id number] IMPRESSION: 1. No CT evidence of acute intra-abdominal or pelvic pathology. 2. Additional findings, as above. Discharge Plan Discharge Patient Disposition: Home Clinical Impression: Abdominal pain Qualifiers: Abdominal location: generalized Qualified Code(s): R10.84 - Generalized abdominal pain Vomiting Qualifiers: Vomiting type: unspecified Vomiting Intractability: non-intractable Nausea presence: with nausea Qualified Code(s): R11.2 - Nausea with vomiting, unspecified Diarrhea Qualifiers: Diarrhea type: unspecified type Qualified Code(s): R19.7 - Diarrhea, unspecified Condition: Stable Prescriptions: New ondansetron 4 mg tablet,disintegrating 4 mg PO Q6H PRN (Reason: nausea and vomiting) Qty: 14 RF: 0 No Action norethindrone (contraceptive) [Merry] 0.35 mg tablet 0.35 mg PO DAILY Qty: 84 RF: 3 labetalol 200 mg tablet 200 mg PO BID Qty: 60 RF: 5 acetaminophen [Tylenol Extra Strength] 500 mg tablet 500 mg PO Q6H PRNRF: 0 ibuprofen 400 mg tablet 400 mg PO TID PRNRF: 0 levothyroxine 75 mcg tablet 75 mcg PO DAILY Qty: 30 RF: 6 Vitamin 27 mg iron- 800 mcg Tablet 1 tab PO DAILY RF: 0 Discharge Orders: Discharge Order (Routine); Ordered 05/31/20 Ordered By: Daljit Gibson Referrals: Danuta Kelley FNP [Primary Care Provider] - 1-3 days Discharge Diet: Advance as tolerated Discharge Activity: Resume usual activity Patient Instructions: Diarrhea - Adult, Abdominal Pain (ED) Coding Level of Care Code 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
[2020-05-30 23:37] LABS: Alanine Aminotransferase 22 U/L (0-33); Albumin Level 4.7 g/dL (3.5-5.2); Alkaline Phosphatase 115 IU/L (35-105); Anion Gap 14.5 (5-19); Aspartate Amino Transferase 17 U/L (0-32); Blood Urea Nitrogen 19 mg/dL (6-20); Calcium 9.4 mg/dL (8.5-10.5); Carbon Dioxide 25 mmol/L (22-29); Chloride 105 mmol/L (98-107); Globulin 3.6 g/dL (1.3-4.6); Glomerular Filtration Rate 85.4 mL/min (90-130); Glucose 106 mg/dL (65-115); Lipase 28 U/L (13-60); Osmolality Calculated 287 mOsm/kg (285-295); Potassium 4.5 mmol/L (3.5-5.1); Sodium 140 mmol/L (136-145); Total Bilirubin 0.7 mg/dL (0.15-1.2); Total Protein 8.3 g/dL (6.6-8.7)
[2020-05-30] MEDS: ondansetron 2 mg/ML SDV 2 mL 4 MG IVP (23:47)
[2020-05-30 23:48] VITALS: RESP 12; O2SAT 98
[2020-05-30] MEDS: morphine 4 mg/mL SDV 1 mL IVP (23:48)
[2020-05-30] MEDS: diphenoxylate/atropine Tablet 1 TAB PO (23:49)
[2020-05-30] MEDS: sodium chloride 0.9% 1,000 ML 999 ML IV (23:50)
[2020-05-31] MEDS: iohexol 300 mg/mL 100 mL Btl IV (00:22)
--- NOTE | 2020-05-31 01:03 | PC.NURSE ---
pain in now a 1 on a scale of 1-10 0102
[2020-05-31 01:45] VITALS: BP 121/66; PULSE 83; RESP 20; TEMP 36.3; O2SAT 97
== END 2020-05-31 01:48 | disposition home or self-care (01) ==
PROVIDERS: Emergency Provider Emergency Medicine; PCP Registered Nurse
DX: R10.84 Generalized abdominal pain (principal); R11.2 Nausea with vomiting, unspecified; R19.7 Diarrhea, unspecified
CPT/HCPCS: 12345; 36415; 74177; 80053; 81001; 81025; 83690; 85025; 96361; 96374; 96375; 99282; 99283; J2270; J2405; J7030; Q9967

== ENCOUNTER → 2020-08-23 15:06 | Outpatient (BNVA) | payer OTHER, SELFPAY | PROVIDERS: PCP Registered Nurse; Visit Provider Nurse Practitioner | DX: M25.572 Pain in left ankle and joints of left foot (principal); M25.472 Effusion, left ankle | CPT/HCPCS: 73610 ==

== ENCOUNTER → 2020-10-25 11:36 | Outpatient (BNVA) | payer OTHER, SELFPAY | PROVIDERS: PCP Registered Nurse; Visit Provider Registered Nurse | DX: I10 Essential (primary) hypertension (principal); E03.9 Hypothyroidism, unspecified; E78.5 Hyperlipidemia, unspecified | CPT/HCPCS: 80053; 80061; 84443 ==

== ENCOUNTER → 2021-05-15 10:10 | Outpatient (BNVA) | payer OTHER, SELFPAY | PROVIDERS: PCP Registered Nurse; Visit Provider Registered Nurse | DX: E03.9 Hypothyroidism, unspecified (principal); K21.9 Gastro-esophageal reflux disease without esophagitis; E66.01 Morbid (severe) obesity due to excess calories; Z68.42 Body mass index [BMI] 45.0-49.9, adult; I10 Essential (primary) hypertension; Z78.9 Other specified health status | CPT/HCPCS: 84443 ==

== ENCOUNTER 2022-01-28 19:23 | Emergency (ER) | payer OTHER, SELFPAY ==
--- NOTE | 2022-01-28 19:26 | XRR_ITS ---
PROCEDURE INFORMATION: Exam: XR Left Ankle Exam date and time: 01/28/2022 7:36 PM Age: 31 years old Clinical indication: Injury or trauma; Other: Twisting injury; Swelling (edema); Ankle; Left TECHNIQUE: Imaging protocol: XR Left ankle. Views: 3 or more views. COMPARISON: No relevant prior studies available. FINDINGS: Bones/joints: Osseous structures are intact. Negative for fracture. Joint spaces are preserved. Soft tissues: Soft tissue swelling around the ankle. XR/XR ankle LT min 3V* [id number] IMPRESSION: No acute findings.
[2022-01-28 19:35] VITALS: BP 142/86; PULSE 90; RESP 20; TEMP 36.6; O2SAT 99; BMI 51.3
--- NOTE | 2022-01-28 19:47 | W.ED.EXTPRO ---
HPI - Extremity Problem General: Chief complaint: Extremity Injury, Lower Stated complaint: twisted left ankle Time Seen by Provider: 01/28/22 19:40 Source: patient Mode of arrival: ambulatory Limitations: no limitations History of Present Illness: 31-year-old female states that she slipped and twisted her ankle 2 weeks ago. She inverted it states that she has had swelling and pain since then. She states she started to get better but still quite painful to walk. Denies any knee pain rates her pain a 2 out of 10 currently states is much improved with rest. Associated symptoms: Deny chest pain, fever(s) or rash Review of Systems Const: Denies: fever(s), chills, body aches or change in appetite Eyes: Denies: blurry vision or eye discomfort ENMT: Denies: throat pain or dental pain Card: Denies: chest pain Resp: Denies: dyspnea GI: Denies: abdominal pain, nausea, vomiting or diarrhea : Denies: dysuria Musc: Reports: extremity pain Skin/Breast: Denies: rash Neuro: Denies: headache(s) Psych: Denies: depression Chris/Lymph: Denies: easy bruising All/Imm: Denies: urticaria PFSH ED PFSH: Medical History (Updated 01/28/22 @ 19:48 by Daljit Gibson MD) Depression History of gestational diabetes Had GDM in fourth of Hypothyroidism, acquired Obesity Psychiatric care Surgical History History of arthroscopy of knee (05/02/11) Performed by Dr. Peraza at [facility] in [place], [place] History of section, low transverse (08/28/15) PLTCS. Dx: CPD large fetus (10 lb [address] oz). [address]formed [address] Barragan at [facility] in [place], [place]. Documented LTCS with b/l inferior extensions. 2 layer closure. History of dilation and curettage (09/27/18) Diagnosis: Incomplete at [address] Gr at [facility] in [place], [place]. History of tonsillectomy and adenoidectomy (12/01/01) Family History Mother Hypertension Diabetes Family/Other Diabetes paternal aunt Grandfather Heart disease maternal Grandmother Thyroid disease maternal Social History (Updated 12/14/21 @ 14:05 by En Olivas LPN) Smoking and tobacco status: never smoked Second hand smoke exposure: Yes Alcohol intake: never Physical Exam Const: COMMON NORMALS: no acute distress, patient oriented x3 and healthy appearing HENMT: COMMON NORMALS: normocephalic and atraumatic HEAD & SCALP: normocephalic and atraumatic Eye: COMMON NORMALS: Equal, round and reactive pupils present and EOMs intact bilaterally PUPIL: Yes Equal, round and reactive pupils present Neck/C-Spine: COMMON NORMALS: full ROM and supple Chest: COMMONS NORMALS: normal inspection of the chest and normal palpation of entire chest wall Resp: COMMON NORMALS: normal respiratory effort, No retractions, No use of accessory muscles and clear to auscultation bilaterally AUSCULTATION: clear to auscultation bilaterally Cardio: COMMON NORMALS: regular rate, regular rhythm and No murmurs present (Cardio) RATE: regular rate RHYTHM: regular rhythm GI: COMMON NORMALS: Normal to inspection, nondistended, normoactive bowel sounds present, Soft to palpation, non-tender and no masses PALPATION: Yes Soft to palpation Extremity: COMMON NORMALS: full ROM NARRATIVE EXTREMITY EXAM: Swelling to left lateral ankle tenderness over that area as well no deformity distal pulses intact Neuro: COMMON NORMALS: patient oriented x3, moves all extremities and no focal motor deficits Psych: COMMON NORMALS: mental status grossly normal, Normal thought process present and cooperative THOUGHT PROCESS: Normal thought process present Skin: COMMON NORMALS: no rashes or lesions noted and no wounds GENERAL SKIN EXAM: no rashes or lesions noted Course Vital Signs: Vital signs: Vital Signs Temperature 97.8 F 01/28/22 19:35 Pulse Rate 90 01/28/22 19:35 Respiratory Rate 20 H 01/28/22 19:35 Blood Pressure 142/86 01/28/22 19:35 Pulse Oximetry 99 01/28/22 19:35 MDM - Extremity (Nontraumatic) Medical Decision Making Patient presents with an ankle sprain x-ray shows no fracture we will place patient in an Jeremy wrap she is to weight-bear as tolerated we will get her follow-up with orthopedics. Discharge Plan Discharge Patient Disposition: Home Clinical Impression: Ankle sprain and strain Condition: Stable Prescriptions: New Naprosyn 500 mg tablet 500 mg PO BID PRN (Reason: pain) Qty: 20 0RF No Action lisinopril 20 mg tablet See Rx Instructions .ROUTE .COMPLEX Qty: 90 1RF Dose Instruction: Take 1 tablet by mouth once daily for 90 days Rx Instructions: Take 1 tablet by mouth once daily for 90 days loratadine [Allergy Relief (loratadine)] 10 mg tablet 10 mg PO DAILY 0RF acetaminophen [Tylenol Extra Strength] 500 mg tablet 500 mg PO Q6H PRN0RF ibuprofen 400 mg tablet 400 mg PO TID PRN0RF albuterol sulfate [Ventolin HFA] 90 mcg/actuation HFA aerosol inhaler 2 puff inhalation Q6H PRN (Reason: shortness of breath or wheezing) Qty: 8.5 0RF levothyroxine [Euthyrox] 75 mcg tablet See Rx Instructions .ROUTE .COMPLEX Qty: 90 3RF Dose Instruction: Take 1 tablet by mouth once daily Rx Instructions: Take 1 tablet by mouth once daily Vitamin 27 mg iron- 800 mcg Tablet 1 tab PO DAILY 0RF Discharge Orders: Discharge ED (Routine); Ordered 01/28/22 Ordered By: Daljit Gibson Referrals: Danuta Kelley FNP [Primary Care Provider] - Smith Castillo MD [Physician] - 1-3 days Discharge Diet: Advance as tolerated Discharge Activity: Resume usual activity Patient Instructions: Ankle Sprain (ED) Coding Level of Care Code ED Global Program Manager for Tiffany Carvajal
--- NOTE | 2022-01-28 20:00 | PC.NURSE ---
1953 left ankle linda wrapped with 4 inch linda pt tolerated well
--- NOTE | 2022-01-29 09:59 | DCPLANNER ---
Addendum entered by Lianna Andrew 02/21/22 20:35: Patient had a follow up appointment scheduled with ortho - patient did attend appointment. Addendum entered by Lianna Andrew 01/30/22 07:58: Patient has a follow up appointment scheduled for Wednesday, February 02, 2022 at 1:[address] Cartwright at ortho. Clinic will call patient with appointment information. Original Note: manager intel had message to schedule a follow up appointment for patient with ortho. manager intel sent patients information to the front staff at the ortho clinic. Patients information will be printed and reviewed. Clinic will call patient with appointment information.
== END 2022-01-28 19:57 | disposition home or self-care (01) ==
PROVIDERS: Emergency Provider Emergency Medicine; PCP Registered Nurse
DX: S93.402A Sprain of unspecified ligament of left ankle, initial encounter (principal); X58.XXXA Exposure to other specified factors, initial encounter
CPT/HCPCS: 73610; 99282

== ENCOUNTER → 2022-06-22 08:47 | Outpatient (BNVA) | payer OTHER, SELFPAY | PROVIDERS: PCP Registered Nurse; Visit Provider Registered Nurse | DX: I10 Essential (primary) hypertension (principal); E03.9 Hypothyroidism, unspecified | CPT/HCPCS: 84443 ==

== ENCOUNTER 2022-09-08 18:11 | Emergency (ER) | payer OTHER, SELFPAY ==
[2022-09-08 18:52] VITALS: BP 107/74; PULSE 122; RESP 16; TEMP 37.7; O2SAT 97
[2022-09-08 18:53] LABS: Basophils % 0.3 %; Eosinophils % 0.1 %; Hematocrit 40.9 % (37.0-47.0); Hemoglobin 13.1 g/dL (11.5-15.3); Lymphocytes # 1.3 10^3/uL (0.8-4.8); Lymphocytes % 9.7 %; Mean Corpuscular Hemoglobin 25.6 pg (28.0-34.0); Mean Corpuscular Volume 79.9 fl (81-99); Mean Platelet Volume 9.9 fL (7.4-10.4); Monocytes # 0.8 10^3/uL (0.2-0.9); Monocytes % 5.7 %; Neutrophils # 11.21 10^3/uL (1.8-7.7); Neutrophils % 83.8 %; Nucleated Red Blood Cells % 0 %; Platelet Count 285 10^3/cmm (130-400); Red Blood Count 5.12 10^6/uL (4.1-5.3); Red Cell Distribution Width 14.1 % (12.1-15.1); White Blood Count 13.4 10^3/uL (4.0-10.0)
[2022-09-08 19:18] LABS: Alanine Aminotransferase 30 U/L (0-33); Albumin Level 4.1 g/dL (3.5-5.2); Alkaline Phosphatase 64 U/L (35-105); Anion Gap 16.4 (5-19); Aspartate Amino Transferase 19 U/L (0-32); Blood Urea Nitrogen 9 mg/dL (6-20); Calcium 9.1 mg/dL (8.5-10.5); Carbon Dioxide 19 mmol/L (22-29); Chloride 97 mmol/L (98-107); Creatinine Clr Calc Pharmacy 150.0364; Globulin 3.7 g/dL (1.3-4.6); Glomerular Filtration Rate 83.7 mL/min (90-130); Glucose 100 mg/dL (65-115); Lipase 16 U/L (13-60); Osmolality Calculated 267 mOsm/kg (285-295); Potassium 3.4 mmol/L (3.5-5.1); Sodium 129 mmol/L (136-145); Total Bilirubin 0.7 mg/dL (0.15-1.2); Total Protein 7.8 g/dL (6.6-8.7)
[2022-09-08 19:20] LABS: HCG, Serum Qual Negative (Negative)
[2022-09-08] MEDS: sodium chloride 0.9% 1,000 ML 999 ML IV (20:10)
[2022-09-08] MEDS: acetaminophen 500 mg Tablet 1000 MG PO (20:14)
[2022-09-08] MEDS: ondansetron 2 mg/ML SDV 2 mL 4 MG IVP (20:14)
--- NOTE | 2022-09-08 20:20 | W.ED.FEVER ---
HPI - Fever General: Chief Complaint: Fever Stated Complaint: Fever, Abd pains, Nausea Time Seen by Provider: 09/08/22 19:56 Source: patient Mode of arrival: ambulatory Limitations: no limitations History of Present Illness: 32-year-old female who states that she been having cough fever body aches over the last 2 days. She is febrile here she denies any abdominal pain she denies any worsening proving factors she has had sick contacts. Associated symptoms: Reports chills; Deny abdominal pain, chest pain, diarrhea, dysuria, headache(s), nausea or vomiting Review of Systems Const: Reports: fever(s), chills and body aches Eyes: Denies: blurry vision or eye discomfort ENMT: Denies: throat pain or dental pain Card: Denies: chest pain Resp: Reports: non-productive cough; Denies: dyspnea GI: Denies: abdominal pain, nausea, vomiting or diarrhea : Denies: dysuria Musc: Denies: neck pain or back pain Skin/Breast: Denies: rash Neuro: Denies: headache(s) Psych: Denies: depression Chris/Lymph: Denies: easy bruising All/Imm: Denies: urticaria PFSH ED PFSH: Medical History Depression History of gestational diabetes Had GDM in fourth of Hypothyroidism, acquired Obesity Psychiatric care Surgical History History of arthroscopy of knee (05/02/11) [place] [facility] [place] History of section, low transverse (08/28/15) PLTCS. Dx: CPD large fetus (10 lb 1 oz). [address] [address] Barr[place] [facility] [place]. Documented LTCS with b/l inferior extensions. 2 layer closure. History of dilation and curettage (09/27/18) Diagnosis: Incomplete at [address] Gr [place] [facility] [place]. History of tonsillectomy and adenoidectomy (12/01/01) Family History Mother Hypertension Diabetes Family/Other Diabetes paternal aunt Grandfather Heart disease maternal Grandmother Thyroid disease maternal Social History Smoking and tobacco status: never smoked Second hand smoke exposure: Yes Smoking risk assessment/counseling performed?: No Alcohol intake: current Alcohol intake frequency: holidays/special occasions only Alcohol type: wine Desire information about alcohol rehabilitation?: No Counseling given: No Desire information about substance/drug rehabilitation?: No Counseling given: No Physical Exam Const: COMMON NORMALS: no acute distress, patient oriented x3 and healthy appearing HENMT: COMMON NORMALS: normocephalic and atraumatic HEAD & SCALP: normocephalic and atraumatic Eye: COMMON NORMALS: Equal, round and reactive pupils present and EOMs intact bilaterally PUPIL: Yes Equal, round and reactive pupils present Neck/C-Spine: COMMON NORMALS: full ROM and supple Chest: COMMONS NORMALS: normal inspection of the chest and normal palpation of entire chest wall Resp: COMMON NORMALS: normal respiratory effort, No retractions, No use of accessory muscles and clear to auscultation bilaterally AUSCULTATION: clear to auscultation bilaterally Cardio: COMMON NORMALS: regular rate, regular rhythm and No murmurs present (Cardio) RATE: regular rate RHYTHM: regular rhythm GI: COMMON NORMALS: Normal to inspection, nondistended, normoactive bowel sounds present, Soft to palpation, non-tender and no masses PALPATION: Yes Soft to palpation Extremity: COMMON NORMALS: normal to inspection and full ROM Neuro: COMMON NORMALS: patient oriented x3, moves all extremities and no focal motor deficits Psych: COMMON NORMALS: mental status grossly normal, Normal thought process present and cooperative THOUGHT PROCESS: Normal thought process present Skin: COMMON NORMALS: no rashes or lesions noted and no wounds GENERAL SKIN EXAM: no rashes or lesions noted Course Vital Signs: Vital signs: Vital Signs Temperature 98.4 F 09/08/22 21:48 Pulse Rate 98 09/08/22 22:14 Respiratory Rate 18 09/08/22 22:14 Blood Pressure 141/94 09/08/22 22:14 Pulse Oximetry 97 09/08/22 22:14 Oxygen Delivery Me thod 09/08/22 21:48 MDM - Fever Medical Decision Making PTPatient presents with fever along with abdominal pain is normal blood work is all normal cycle has a viral syndrome she is stable for discharge she is to follow-up PCP and return if worsening she understands agrees to plan. Lab Data 09/08/22 18:43 09/08/22 18:43 Radiology Impressions Abdomen/Pelvis CT 09/08/22 20:47 IMPRESSION: 1. Left kidney cyst, negative for follow-up advised. 2. Scattered prominent subcentimeter nonspecific mediastinal lymph nodes. 3. Equivocal minimal edema about the pancreatic head, series 3, image 31, please correlate for possible pancreatitis. 4. Left adrenal 15 mm fat density benign myelolipoma. 5. Left kidney cyst, negative for follow-up advised. 6. Scattered prominent subcentimeter nonspecific mediastinal lymph nodes. COMMENTS: Consistent with the [employer]'s Incidental Findings Committee white paper (J Am Destin Radiol 2017): For any incidental adrenal lesion greater than or equal to 1 cm but less than or equal to 4 cm classified in this report as benign, likely benign, or containing fat (including classification as an adenoma or myelolipoma), no follow-up imaging is recommended per consensus recommendations based on imaging criteria. Further lab evaluation could be pursued if warranted based on clinical findings. Laboratory Results WBC 13.4 10^3/uL (4.0-10.0) H 09/08/22 18:43 RBC 5.12 10^6/uL (4.1-5.3) 09/08/22 18:43 Hgb 13.1 g/dL (11.5-15.3) 09/08/22 18:43 Hct 40.9 % (37.0-47.0) 09/08/22 18:43 MCV 79.9 fl (81-99) L 09/08/22 18:43 MCH 25.6 pg (28.0-34.0) L 09/08/22 18:43 MCHC 32.0 g/dL (30.0-36.0) 09/08/22 18:43 RDW 14.1 % (12.1-15.1) 09/08/22 18:43 Plt Count 285 10^3/cmm (130-400) 09/08/22 18:43 MPV 9.9 fL (7.4-10.4) 09/08/22 18:43 Neut % (Auto) 83.8 % 09/08/22 18:43 Lymph % (Auto) 9.7 % 09/08/22 18:43 [place] % (Auto) 5.7 % 09/08/22 18:43 Eos % (Auto) 0.1 % 09/08/22 18:43 Baso % (Auto) 0.3 % 09/08/22 18:43 Neut # (Auto) 11.21 10^3/uL (1.8-7.7) H 09/08/22 18:43 Lymph # (Auto) 1.3 10^3/uL (0.8-4.8) 09/08/22 18:43 [place] # (Auto) 0.8 10^3/uL (0.2-0.9) 09/08/22 18:43 Eos # (Auto) 0.0 10^3/uL (0.0-0.8) 09/08/22 18:43 Baso # (Auto) 0.0 10^3/uL (0.0-0.1) 09/08/22 18:43 Nucleated RBC % (auto) 0 % 09/08/22 18:43 Nucleated RBCs # 0.0 /100WBC 09/08/22 18:43 Sodium 129 mmol/L (136-145) L 09/08/22 18:43 Potassium 3.4 mmol/L (3.5-5.1) L 09/08/22 18:43 Chloride 97 mmol/L (98-107) L 09/08/22 18:43 Carbon Dioxide 19 mmol/L (22-29) L 09/08/22 18:43 Anion Gap 16.4 (5-19) 09/08/22 18:43 BUN 9 mg/dL (6-20) 09/08/22 18:43 Creatinine 0.8 mg/dL (0.5-0.9) 09/08/22 18:43 GFR Calculation 83.7 mL/min (90-130) L 09/08/22 18:43 Glucose 100 mg/dL (65-115) 09/08/22 18:43 Calculated Osmolality 267 mOsm/kg (285-295) L 09/08/22 18:43 Calcium 9.1 mg/dL (8.5-10.5) 09/08/22 18:43 Total Bilirubin 0.7 mg/dL (0.15-1.2) 09/08/22 18:43 AST 19 U/L (0-32) 09/08/22 18:43 ALT 30 U/L (0-33) 09/08/22 18:43 Alkaline Phosphatase 64 U/L (35-105) 09/08/22 18:43 Total Protein 7.8 g/dL (6.6-8.7) 09/08/22 18:43 Albumin 4.1 g/dL (3.5-5.2) 09/08/22 18:43 Globulin 3.7 g/dL (1.3-4.6) 09/08/22 18:43 Lipase 16 U/L (13-60) 09/08/22 18:43 HCG, Qual Negative (Negative) 09/08/22 18:43 Urine Color Yellow (Yellow) 09/08/22 20:45 Urine Appearance Clear (CLEAR) 09/08/22 20:45 Urine pH 6 (5-7) 09/08/22 20:45 Ur Specific [place] 1.015 (1.005-1.030) 09/08/22 20:45 Urine Protein Neg (Negative) 09/08/22 20:45 Urine Glucose (UA) Norm (Normal) 09/08/22 20:45 Urine Ketones Negative (Negative) 09/08/22 20:45 Urine Blood Neg (Negative) 09/08/22 20:45 Urine Nitrate Negative (Negative) 09/08/22 20:45 Urine Bilirubin Neg (Negative) 09/08/22 20:45 Urine Urobilinogen Neg mg/dL (Negative) 09/08/22 20:45 Ur Leukocyte Esterase Negative (Negative) 09/08/22 20:45 Influenza Type A Ag negative (Negative) 09/08/22 20:07 Influenza Type B Ag negative (Negative) 09/08/22 20:07 SARS-CoV-2 Ag (Rapid) negative (Negative) 09/08/22 20:15 Discharge Plan Discharge Patient Disposition: Home Clinical Impression: Abdominal pain, Acute viral syndrome Condition: Stable Prescriptions: New ondansetron 4 mg tablet,disintegrating 4 mg PO Q6H PRN (Reason: nausea and vomiting) Qty: 14 0RF No Action loratadine [Allergy Relief (loratadine)] 10 mg tablet 10 mg PO DAILY acetaminophen [Tylenol Extra Strength] 500 mg tablet 500 mg PO Q6H PRN ibuprofen 400 mg tablet 400 mg PO TID PRN albuterol sulfate [Ventolin HFA] 90 mcg/actuation HFA aerosol inhaler 2 puff inhalation Q6H PRN (Reason: shortness of breath or wheezing) Qty: 8.5 0RF lisinopril 20 mg tablet See Rx Instructions .ROUTE .COMPLEX Qty: 90 1RF Dose Instruction: Take 1 tablet by mouth once daily for 90 days Rx Instructions: Take 1 tablet by mouth once daily for 90 days trazodone 100 mg tablet 200 mg PO .HS PRN (Reason: insomnia) Qty: 60 2RF propranolol 20 mg tablet 20 mg PO BID PRN (Reason: anxiety) Qty: 60 2RF buspirone 10 mg tablet 10 mg PO TID Qty: 90 2RF levothyroxine [Euthyrox] 75 mcg tablet See Rx Instructions .ROUTE .COMPLEX Qty: 90 0RF Dose Instruction: Take 1 tablet by mouth once daily Rx Instructions: Take 1 tablet by mouth once daily omeprazole 20 mg capsule,delayed release(DR/EC) 20 mg PO DAILY 30 Days Qty: 30 0RF mebendazole 100 mg tablet,chewable 100 mg PO ONCE Qty: 2 0RF Rx Instructions: Take 1 tab today; repeat in 14 days. Treat everyone in the home at the same time. Vitamin 27 mg iron- 800 mcg Tablet 1 tab PO DAILY Naprosyn 500 mg tablet 500 mg PO BID PRN (Reason: pain) Qty: 20 0RF Discharge Orders: Discharge ED (Routine); Ordered 09/08/22 Ordered By: Daljit Gibson Referrals: Danuta Kelley FNP [Primary Care Provider] - 1-3 days Discharge Diet: Advance as tolerated Discharge Activity: Resume usual activity Patient Instructions: Abdominal Pain (ED) Coding Level of Care Code ED Peace Officer for Chg 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
[2022-09-08 20:33] LABS: Influenza A by IFA negative (Negative); Influenza B by IFA negative (Negative)
--- NOTE | 2022-09-08 20:47 | CTR_ITS ---
PROCEDURE INFORMATION: Exam: CT Abdomen And Pelvis Without Contrast Exam date and time: 09/08/2022 9:12 PM Age: 32 years old Clinical indication: Abdominal pain; Additional info: Abd pain TECHNIQUE: Imaging protocol: Computed tomography of the abdomen and pelvis without contrast. Radiation optimization: All CT scans at this facility use at least one of these dose optimization techniques: automated exposure control; mA and/or kV adjustment per patient size (includes targeted exams where dose is matched to clinical indication); or iterative reconstruction. COMPARISON: CT abdomen pelvis w con* [id number] 05/31/2020 12:08 AM RADIATION DOSE METRICS: Total DLP (mGy-cm): 1298.23 FINDINGS: Liver: Normal. No mass. Gallbladder and bile ducts: Normal. No calcified stones. No ductal dilation. Pancreas: Equivocal minimal edema about the pancreatic head, series 3, image 31, please correlate for possible pancreatitis. Spleen: Normal. No splenomegaly. Adrenal glands: Left adrenal 15 mm fat density benign myelolipoma. Kidneys and ureters: Normal. No hydronephrosis. Stomach and bowel: Unremarkable. No obstruction. No mucosal thickening. Appendix: No evidence of appendicitis. Intraperitoneal space: Unremarkable. No free air. No significant fluid collection. Vasculature: Unremarkable. No abdominal aortic aneurysm. Lymph nodes: Unremarkable. No enlarged lymph nodes. Urinary bladder: Unremarkable as visualized. Reproductive: Unremarkable as visualized. Bones/joints: Unremarkable. No acute fracture. Soft tissues: Unremarkable. CT/CT abdomen pelvis wo con [id number] IMPRESSION: 1. Left kidney cyst, negative for follow-up advised. 2. Scattered prominent subcentimeter nonspecific mediastinal lymph nodes. 3. Equivocal minimal edema about the pancreatic head, series 3, image 31, please correlate for possible pancreatitis. 4. Left adrenal 15 mm fat density benign myelolipoma. 5. Left kidney cyst, negative for follow-up advised. 6. Scattered prominent subcentimeter nonspecific mediastinal lymph nodes. COMMENTS: Consistent with the [employer]'s Incidental Findings Committee white paper (J Am Destin Radiol 2017): For any incidental adrenal lesion greater than or equal to 1 cm but less than or equal to 4 cm classified in this report as benign, likely benign, or containing fat (including classification as an adenoma or myelolipoma), no follow-up imaging is recommended per consensus recommendations based on imaging criteria. Further lab evaluation could be pursued if warranted based on clinical findings.
[2022-09-08 20:58] LABS: SARS Covid-2 Antigen negative (Negative)
[2022-09-08 21:08] LABS: Add Urine Microscopic? NO; Charge for UA Resulting for Rev
[2022-09-08 21:16] LABS: Bilirubin Urine Neg (Negative); Blood Urine Neg (Negative); Glucose Urine UA Norm (Normal); Ketones Urine Negative (Negative); Leukocyte Esterase Urine Negative (Negative); Nitrate Urine Negative (Negative); Protein Urine Neg (Negative); Specific Gravity, Urine 1.015 (1.005-1.030); Urine Appearance Clear (CLEAR); Urine Color Yellow (Yellow); Urobilinogen Urine Neg (Negative); pH Urine 6 (5-7)
[2022-09-08 21:48] VITALS: BP 112/78; PULSE 97; RESP 18; TEMP 36.9; O2SAT 97
[2022-09-08] MEDS: dexamethasone 10 mg/mL INJ IVP (22:00)
[2022-09-08 22:14] VITALS: BP 141/94; PULSE 98; RESP 18; O2SAT 97
== END 2022-09-08 22:15 | disposition home or self-care (01) ==
PROVIDERS: Emergency Provider Emergency Medicine; PCP Registered Nurse
DX: B34.9 Viral infection, unspecified (principal); R10.9 Unspecified abdominal pain; Z20.822 Contact with and (suspected) exposure to COVID-19; Z77.22 Contact with and (suspected) exposure to environmental tobacco smoke (acute) (chronic)
CPT/HCPCS: 36415; 74176; 80053; 81003; 83690; 84703; 85025; 87426; 87804; 96361; 96374; 96375; 99285; J1100; J2405; J7030

== ENCOUNTER 2023-01-24 13:42 | Emergency (ER) | payer OTHER, SELFPAY ==
[2023-01-24 14:03] VITALS: PULSE 106; RESP 18; TEMP 36.9; O2SAT 99
[2023-01-24 14:47] LABS: Basophils # 0.1 10^3/uL (0.0-0.1); Basophils % 0.6 %; Eosinophils # 0.3 10^3/uL (0.0-0.8); Eosinophils % 4.1 %; Hematocrit 41.4 % (37.0-47.0); Hemoglobin 13.4 g/dL (11.5-15.3); Lymphocytes % 37.5 %; Mean Corpuscular HGB Conc 32.4 g/dL (30.0-36.0); Mean Corpuscular Hemoglobin 26.7 pg (28.0-34.0); Mean Corpuscular Volume 82.6 fl (81-99); Mean Platelet Volume 8.7 fL (7.4-10.4); Monocytes # 0.5 10^3/uL (0.2-0.9); Monocytes % 6.3 %; Neutrophils % 51.2 %; Nucleated Red Blood Cells % 0 %; Platelet Count 343 10^3/cmm (130-400); Red Blood Count 5.01 10^6/uL (4.1-5.3); Red Cell Distribution Width 13.1 % (12.1-15.1)
[2023-01-24 15:04] LABS: HCG, Serum Qual Negative (Negative)
[2023-01-24 15:06] LABS: Alanine Aminotransferase 33 U/L (0-33); Albumin Level 4.3 g/dL (3.5-5.2); Alkaline Phosphatase 94 U/L (35-105); Aspartate Amino Transferase 33 U/L (0-32); Blood Urea Nitrogen 10 mg/dL (6-20); Calcium 8.9 mg/dL (8.5-10.5); Carbon Dioxide 27 mmol/L (22-29); Chloride 104 mmol/L (98-107); Globulin 3.3 g/dL (1.3-4.6); Glomerular Filtration Rate 83.7 mL/min (90-130); Glucose 104 mg/dL (65-115); Lipase 26 U/L (13-60); Osmolality Calculated 289 mOsm/kg (285-295); Sodium 140 mmol/L (136-145); Total Bilirubin 0.4 mg/dL (0.15-1.2); Total Protein 7.6 g/dL (6.6-8.7)
[2023-01-24 17:05] LABS: Add Urine Microscopic? NO; Charge for UA Resulting for Rev
[2023-01-24 17:11] LABS: Bilirubin Urine Neg (Negative); Blood Urine Neg (Negative); Glucose Urine UA Norm (Normal); Ketones Urine Negative (Negative); Leukocyte Esterase Urine Negative (Negative); Nitrate Urine Negative (Negative); Protein Urine Neg (Negative); Urine Appearance Clear (CLEAR); Urine Color Yellow (Yellow); Urobilinogen Urine Neg (Negative); pH Urine 6 (5-7)
--- NOTE | 2023-01-24 17:51 | USR_ITS ---
PROCEDURE INFORMATION: Exam: US Abdomen, Limited; Right Upper Quadrant Exam date and time: 01/24/2023 6:01 PM Age: 32 years old Clinical indication: Abdominal pain; Other: Ruq; Additional info: Ruq abd pain TECHNIQUE: Imaging protocol: Real time ultrasound of the abdomen with image documentation. Limited exam focused on the right upper quadrant. COMPARISON: CT abdomen pelvis wo con [id number] 09/08/2022 9:12 PM FINDINGS: Liver: Normal. No masses. Liver measures 16.7 cm. Gallbladder: Normal. No gallstones. There is no gallbladder wall thickening. Gallbladder wall measures 2.4 mm. Negative Frias sign. Biliary ducts: Normal. No stones. No dilation. Common bile duct measures 3.5 mm. Pancreas: Visualized pancreas is unremarkable. Right kidney: Normal. No mass. No hydronephrosis. Renal flow noted. Right kidney measures 10.6 x 4.2 x 6.5 cm with a cortical thickness of 1.2 cm. Aorta and IVC: Appear unremarkable. US/US abdomen limited [id number] IMPRESSION: No acute findings.
[2023-01-24 17:56] VITALS: BP 117/74; PULSE 91; RESP 15; TEMP 36.9; O2SAT 98
--- NOTE | 2023-01-24 18:08 | W.ED.ABDPA2 ---
HPI - Abdominal Pain General: Chief Complaint: Abdominal Pain Stated Complaint: upper right abd pain Time Seen by Provider: 01/24/23 17:17 History of Present Illness: Patient is in today for intermittent right upper quadrant abdominal pain for the past 1 week. She reports that it seems to be worse after she eats. Today the only thing she has eaten is a pack of peanut M&Ms and afterwards she started having sharp pain in her right upper quadrant abdomen. She has had days of nausea and vomiting and diarrhea. She has not had any vomiting or diarrhea today but she has been very nauseated. She denies fever, chills. She denies any urinary symptoms. She denies any history of kidney stones. Associated Symptoms: Reports nausea; Denies chills, dysuria, fever(s) and vomiting Review of Systems Const: Denies: fever(s) or chills Card: Denies: chest pain, palpitations or irregular heart rhythm Resp: Denies: dyspnea, productive cough or non-productive cough GI: Reports: abdominal pain and nausea; Denies: vomiting : Denies: flank pain, difficulty voiding, dysuria, urinary frequency, urinary urgency or urinary hesitancy PFSH ED PFSH: Medical History Depression History of gestational diabetes Had GDM in fourth of Hypothyroidism, acquired Obesity Psychiatric care Surgical History History of arthroscopy of knee (05/02/11) Performed by Dr. Peraza at [facility] in [place], [place] History of section, low transverse (08/28/15) PLTCS. Dx: CPD large fetus (10 lb 1 oz). [address] Barragan at [facility] [place], [place]. Documented LTCS with b/l inferior extensions. 2 layer closure. History of dilation and curettage (09/27/18) Diagnosis: Incomplete at [address] Gr at [facility] in [place], [place] History of tonsillectomy and adenoidectomy (12/01/01) Family History Mother Hypertension Diabetes Family/Other Diabetes paternal aunt Grandfather Heart disease maternal Grandmother Thyroid disease maternal Social History Smoking and tobacco status: never smoked Second hand smoke exposure: Yes Smoking risk assessment/counseling performed?: No Alcohol intake: current Alcohol intake frequency: holidays/special occasions only Alcohol type: wine Desire information about alcohol rehabilitation?: No Counseling given: No Desire information about substance/drug rehabilitation?: No Counseling given: No Physical Exam Const: COMMON NORMALS: no acute distress, patient oriented x3 and alert NUTRITIONAL APPEARANCE: obese morbidly obese Neck/C-Spine: COMMON NORMALS: no JVD Resp: COMMON NORMALS: normal respiratory effort, No use of accessory muscles and clear to auscultation bilaterally AUSCULTATION: clear to auscultation bilaterally Cardio: COMMON NORMALS: no JVD, regular rate, regular rhythm, S1 normal heart sound present, S2 normal heart sound present and No murmurs present (Cardio) RATE: regular rate RHYTHM: regular rhythm HEART SOUNDS: S1 normal heart sound present and S2 normal heart sound present GI: COMMON NORMALS: Normal to inspection, nondistended, normoactive bowel sounds present and Soft to palpation PALPATION: Yes Soft to palpation, Yes Tenderness to palpation present (GI) Details: RUQ and Yes Other GI palpation findings present (Negative Frias sign) : COMMON NORMALS: Yes no CVA tenderness BLADDER/KIDNEY EXAM: Yes no CVA tenderness Back/Pelvis: COMMON NORMALS: no CVA tenderness Neuro: COMMON NORMALS: patient oriented x3 SENSORIUM/ORIENTATION: Yes alert Course Vital Signs: Vital signs: Vital Signs Temperature 98.5 F 01/24/23 17:56 Pulse Rate 91 01/24/23 17:56 Respiratory Rate 15 01/24/23 17:56 Blood Pressure 117/74 01/24/23 17:56 Pulse Oximetry 98 01/24/23 17:56 Oxygen Delivery Me thod Room Air 01/24/23 14:03 MDM - Abdominal Pain Medical Decision Making Consider cholecystitis, cholelithiasis, biliary colic, abdominal pain, urinary tract infection Labs are essentially unremarkable. Physical exam is consistent with right upper quadrant abdominal pain without guarding. Negative Frias sign. UA dip does not indicate any acute infection. Ultrasound of the right upper quadrant abdomen does not show any acute findings. Patient pain is better after pain medication administered in here. Advised patient of results of all testing. I recommend a gallbladder diet which would involve avoiding fried fatty foods, caffeine, nicotine, chocolate, lettuce, red sauce. I recommend continued follow-up with her primary care provider and if symptoms are persisting they can discuss further evaluation by electric motor mechanic. Patient verbalized understanding and is agreeable with discharge home. Discharged in stable condition. Lab Data 01/24/23 14:41 01/24/23 14:41 Labs/Radiology: Radiology Impressions Abdomen Ultrasound 01/24/23 17:51 IMPRESSION: No acute findings. Laboratory Results WBC 8.0 10^3/uL (4.0-10.0) 01/24/23 14:41 RBC 5.01 10^6/uL (4.1-5.3) 01/24/23 14:41 Hgb 13.4 g/dL (11.5-15.3) 01/24/23 14:41 Hct 41.4 % (37.0-47.0) 01/24/23 14:41 MCV 82.6 fl (81-99) 01/24/23 14:41 MCH 26.7 pg (28.0-34.0) L 01/24/23 14:41 MCHC 32.4 g/dL (30.0-36.0) 01/24/23 14:41 RDW 13.1 % (12.1-15.1) 01/24/23 14:41 Plt Count 343 10^3/cmm (130-400) 01/24/23 14:41 MPV 8.7 fL (7.4-10.4) 01/24/23 14:41 Neut % (Auto) 51.2 % 01/24/23 14:41 Lymph % (Auto) 37.5 % 01/24/23 14:41 [place] % (Auto) 6.3 % 01/24/23 14:41 Eos % (Auto) 4.1 % 01/24/23 14:41 Baso % (Auto) 0.6 % 01/24/23 14:41 Neut # (Auto) 4.10 10^3/uL (1.8-7.7) 01/24/23 14:41 Lymph # (Auto) 3.0 10^3/uL (0.8-4.8) 01/24/23 14:41 [place] # (Auto) 0.5 10^3/uL (0.2-0.9) 01/24/23 14:41 Eos # (Auto) 0.3 10^3/uL (0.0-0.8) 01/24/23 14:41 Baso # (Auto) 0.1 10^3/uL (0.0-0.1) 01/24/23 14:41 Nucleated RBC % (auto) 0 % 01/24/23 14:41 Nucleated RBCs # 0.0 /100WBC 01/24/23 14:41 Sodium 140 mmol/L (136-145) 01/24/23 14:41 Potassium 4.0 mmol/L (3.5-5.1) 01/24/23 14:41 Chloride 104 mmol/L (98-107) 01/24/23 14:41 Carbon Dioxide 27 mmol/L (22-29) 01/24/23 14:41 Anion Gap 13.0 (5-19) 01/24/23 14:41 BUN 10 mg/dL (6-20) 01/24/23 14:41 Creatinine 0.8 mg/dL (0.5-0.9) 01/24/23 14:41 GFR Calculation 83.7 mL/min (90-130) L 01/24/23 14:41 Glucose 104 mg/dL (65-115) 01/24/23 14:41 Calculated Osmolality 289 mOsm/kg (285-295) 01/24/23 14:41 Calcium 8.9 mg/dL (8.5-10.5) 01/24/23 14:41 Total Bilirubin 0.4 mg/dL (0.15-1.2) 01/24/23 14:41 AST 33 U/L (0-32) H 01/24/23 14:41 ALT 33 U/L (0-33) 01/24/23 14:41 Alkaline Phosphatase 94 U/L (35-105) 01/24/23 14:41 Total Protein 7.6 g/dL (6.6-8.7) 01/24/23 14:41 Albumin 4.3 g/dL (3.5-5.2) 01/24/23 14:41 Globulin 3.3 g/dL (1.3-4.6) 01/24/23 14:41 Lipase 26 U/L (13-60) 01/24/23 14:41 HCG, Qual Negative (Negative) 01/24/23 14:41 Urine Color Yellow (Yellow) 01/24/23 16:55 Urine Appearance Clear (CLEAR) 01/24/23 16:55 Urine pH 6 (5-7) 01/24/23 16:55 Ur Specific [place] 1.020 (1.005-1.030) 01/24/23 16:55 Urine Protein Neg (Negative) 01/24/23 16:55 Urine Glucose (UA) Norm (Normal) 01/24/23 16:55 Urine Ketones Negative (Negative) 01/24/23 16:55 Urine Blood Neg (Negative) 01/24/23 16:55 Urine Nitrate Negative (Negative) 01/24/23 16:55 Urine Bilirubin Neg (Negative) 01/24/23 16:55 Urine Urobilinogen Neg mg/dL (Negative) 01/24/23 16:55 Ur Leukocyte Esterase Negative (Negative) 01/24/23 16:55 Discharge Plan Discharge Patient Disposition: Home Clinical Impression: Abdominal pain Condition: Stable Prescriptions: No Action acetaminophen [Tylenol Extra Strength] 500 mg tablet 500 mg PO Q6H PRN ibuprofen 400 mg tablet 400 mg PO TID PRN albuterol sulfate [Ventolin HFA] 90 mcg/actuation HFA aerosol inhaler 2 puff inhalation Q6H PRN (Reason: shortness of breath or wheezing) Qty: 8.5 0RF lisinopril 20 mg tablet See Rx Instructions .ROUTE .COMPLEX Qty: 90 1RF Dose Instruction: Take 1 tablet by mouth once daily for 90 days Rx Instructions: Take 1 tablet by mouth once daily for 90 days levothyroxine [Euthyrox] 75 mcg tablet See Rx Instructions .ROUTE .COMPLEX Qty: 90 0RF Dose Instruction: Take 1 tablet by mouth once daily Rx Instructions: Take 1 tablet by mouth once daily buspirone 10 mg tablet 10 mg PO TID Qty: 90 0RF duloxetine [Cymbalta] 60 mg capsule,delayed release(DR/EC) 60 mg PO DAILY Qty: 30 0RF propranolol 20 mg tablet 20 mg PO BID PRN (Reason: anxiety) Qty: 60 0RF trazodone 100 mg tablet 200 mg PO .HS PRN (Reason: insomnia) Qty: 60 0RF Vitamin 27 mg iron- 800 mcg Tablet 1 tab PO DAILY Naprosyn 500 mg tablet 500 mg PO BID PRN (Reason: pain) Qty: 20 0RF ondansetron 4 mg tablet,disintegrating 4 mg PO Q6H PRN (Reason: nausea and vomiting) Qty: 14 0RF Discharge Orders: Discharge ED (Routine); Ordered 01/24/23 Ordered By: Sharee Long Referrals: Jose Manuel Christian MD [Primary Care Provider] - Discharge Diet: As Directed Discharge Activity: Resume usual activity Patient Instructions: Abdominal Pain (ED) Activity Restrictions/Additional Instructions: Your ultrasound did not show any evidence of gallstones or obstruction. Your lab work was essentially unremarkable. I do not see any evidence of acute bacterial infection at this time. I recommend dietary changes to avoid fatty fried foods, nicotine, chocolate, caffeine, red sauce, lettuce to see if the pain episodes are reduced. Continue follow-up with your primary care provider. If symptoms persist or worsen return to the ER as needed. Coding Level of Care Code ED Parking Lot Attendant for Tiffany Carvajal
[2023-01-24] MEDS: ondansetron 2 mg/ML SDV 2 mL 4 MG IVP (18:32)
[2023-01-24] MEDS: ketorolac 30 mg/mL INJ IVP (18:53)
== END 2023-01-24 19:12 | disposition home or self-care (01) ==
PROVIDERS: Physician Assistant; Emergency Provider Nurse Practitioner Family; PCP Family Medicine
DX: R10.11 Right upper quadrant pain (principal); Z77.22 Contact with and (suspected) exposure to environmental tobacco smoke (acute) (chronic)
CPT/HCPCS: 36415; 76705; 80053; 81003; 83690; 84703; 85025; 96374; 96375; 99285; J1885; J2405

== ENCOUNTER → 2023-04-15 09:17 | Outpatient (BNVA) | payer OTHER, SELFPAY | PROVIDERS: PCP Family Medicine; Visit Provider Internal Medicine | DX: E03.9 Hypothyroidism, unspecified (principal); E66.9 Obesity, unspecified; R00.0 Tachycardia, unspecified; E66.01 Morbid (severe) obesity due to excess calories; Z68.42 Body mass index [BMI] 45.0-49.9, adult | CPT/HCPCS: 36415; 84305; 84403; 84439; 84443 ==

== ENCOUNTER 2023-04-17 16:44 | Outpatient (CLI) | payer OTHER, SELFPAY ==
[2023-04-17 17:46] LABS: Urine Creatinine 73 mg/dL (28-217)
[2023-04-17 17:51] LABS: Creatinine 24 Hour Urine 1642.5 mg/dL (601-1689); Total Volume Urine 2250 ml
[2023-04-23 11:18] LABS: Free Cortisol Urine 16.7 mcg/24 h (4.0-50.0); Total Urine 2250 mL; Urine Creatinine 1.71 g/24 h (0.50-2.15)
== END 2023-04-17 16:45 | disposition home or self-care (01) ==
PROVIDERS: PCP Family Medicine; Visit Provider Internal Medicine
DX: E03.9 Hypothyroidism, unspecified (principal); E66.9 Obesity, unspecified; R00.0 Tachycardia, unspecified
CPT/HCPCS: 82530; 82570

== ENCOUNTER 2023-08-09 07:46 | Outpatient (CLI) | payer OTHER, SELFPAY ==
--- NOTE | 2023-08-09 07:53 | NM_ITS ---
WS: [id number] NUCLEAR MEDICINE HIDA SCAN CLINICAL INFORMATION: RUQ PAIN TECHNIQUE: Following intravenous administration of 7.8 mCi of technetium 99m mebrofenin, images of th e abdomen were obtained over the course of 60 minutes. Next, gallbladder ejection fraction was determ ined by obtaining preprandial and one-hour postprandial images of the gallbladder following oral barrett stion of Ensure. COMPARISON: Ultrasound abdomen 01/24/2023 FINDINGS: Normal hepatic uptake at 5 minutes. Normal hepatic excretion. Gallbladder is visualized by 20 minutes . No evidence of acute cholecystitis. Normal common bile duct and small bowel activity. Gallbladder ejection fraction 82% within normal limits. No evidence of chronic cholecystitis. IMPRESSION: 1. No evidence of acute or chronic cholecystitis. 2. Gallbladder ejection fraction 82% within normal limits.
== END 2023-08-09 07:47 | disposition home or self-care (01) ==
PROVIDERS: PCP Family Medicine; Visit Provider Family Medicine
DX: R10.11 Right upper quadrant pain (principal)
CPT/HCPCS: 78227; A9537

== ENCOUNTER 2023-10-24 08:23 | Outpatient (CLI) | payer OTHER, SELFPAY ==
--- NOTE | 2023-10-24 08:29 | US_ITS ---
WS: [id number] ULTRASOUND ABDOMEN LIMITED CLINICAL INFORMATION: ELEVATION OF LIVER TRANSAMINASE LEVELS COMPARISON: Ultrasound 01/24/2023 FINDINGS: Liver Size: Normal. Craniocaudal length: 15.4 cm. Echogenicity: Increased Surface nodularity: None. Mass (size and location): None. Bile ducts Intrahepatic ducts: Normal. Common bile duct diameter: 0.3 cm. Gallbladder Normal. Gallstones: None. Gallbladder sludge: None. Gallbladder wall thickening: None. Pericholecystic fluid: None. Sonographic Frias sign: Absent. Pancreas Normal as visualized. . Right kidney: Normal. Hydronephrosis: None. Size: 11.5 cm x 6.3 cm x 4.4 cm. Abdominal aorta and IVC Visualized portions are normal. Ascites: None. IMPRESSION: 1. Mild diffuse fatty infiltration of the liver. Liver size upper limits of normal. 2. Normal gallbladder. 3. No hydronephrosis in the RIGHT kidney. 4. No other suspicious findings.
== END 2023-10-24 08:24 | disposition home or self-care (01) ==
LOC: RAD 08:24
PROVIDERS: PCP Family Medicine; Visit Provider Family Medicine
DX: R74.01 Elevation of levels of liver transaminase levels (principal); K76.0 Fatty (change of) liver, not elsewhere classified
CPT/HCPCS: 76705

== ENCOUNTER 2024-01-21 08:54 | Outpatient (CLI) | payer OTHER, SELFPAY ==
--- NOTE | 2024-01-21 08:58 | MR_ITS ---
WS: [id number] MRI HEAD WITHOUT CONTRAST TECHNIQUE: Sagittal T1, T2 axial, T2 axial FLAIR, axial and coronal T1 images, axial susceptibility w eighted imaging, axial diffusion weighted images, and coronal T2 images were obtained. CLINICAL INFORMATION: WORD FINDING DIFFICULTY COMPARISON: None. FINDINGS: No evidence of restricted diffusion to suggest acute ischemia. No suspicious intracranial signal norm alities. Normal preciado-white differentiation. Normal posterior fossa. Normal vascular flow voids at the skull base. No extra-axial fluid collections. No evidence of mass or mass effect. Paranasal sinuses are well aerated. Normal posterior nasopharynx. No hemosiderin on susceptibility images. Normal optic chiasm and pituitary infundibulum. Normal temporal lobes and hippocampal formations. Nor mal cavernous sinuses and Meckel's cave. IMPRESSION: 1. No evidence of restricted diffusion to suggest acute ischemia. 2. No suspicious intracranial signal normalities. 3. No hemosiderin on susceptibility-weighted images. 4. No other suspicious findings.
== END 2024-01-21 08:55 | disposition home or self-care (01) ==
LOC: RAD 08:54
PROVIDERS: PCP Family Medicine; Visit Provider Family Medicine
DX: F80.89 Other developmental disorders of speech and language (principal)
CPT/HCPCS: 70551

== ENCOUNTER → 2024-07-16 12:51 | Outpatient (BNVA) | payer OTHER, SELFPAY | PROVIDERS: PCP Family Medicine; Referring Provider Internal Medicine; Visit Provider Internal Medicine | DX: R07.9 Chest pain, unspecified (principal); I49.8 Other specified cardiac arrhythmias | CPT/HCPCS: 93005 ==

== ENCOUNTER 2024-10-09 11:46 | Outpatient (CLI) | payer OTHER, SELFPAY ==
--- NOTE | 2024-10-09 | ECG_ITS ---
[facility]mate [facility] Test Date: 2024-10-09 Pat Name: Jeanette Jenkins Department: Room: Gender: Female Clarity Developer: : 1990 Requested By: Bradley Goldman Order Number: [id number] Macarena MD: Bradley Goldman M.D. Interpretive Statements EXERCISE MIBI : EXERCISE DATA: The patient was exercised by [place] protocol. Baseline heart rate was 121 beats per minute. Baseline blood pressure was 142/87millimeters of mercury. Maximal predicted heart rate was 187 beats per minute. Maximum heart rate achieved was [], which was 185% of the maximum predicted heart rate. Maximum blood pressure was 185/82 millimeters of mercury. Total exercise time was 6 minutes and 43 seconds. Maximum METs achieved was 10.2.The reason for ending the test was maximal effort achieved. The patient complained of shortness of breath during the stress test, which then resolved at the end of the test. ELECTROCARDIOGRAM: BASELINE: Showed sinus tachycardia, normal axis, no significant ST-T changes at the baseline noted. [] EXERCISE: At the peak exercise level, [] No significant ST-T changes suggestive of ischemia noted. [] RECOVERY: During the recovery period, heart rate dropped appropriately. No significant ST-T changes in the recovery suggestive of ischemia noted. [] CONCLUSION: 1. Exercise capacity is good. 2. Heart rate response was appropriate 3. Blood pressure response was appropriate 4. Symptoms not suggestive of ischemia. 5. Electrocardiogram portion of the stress test was not suggestive of ischemia. 6. Nuclear scan will be documented separately. Electronically Signed On 10-11-2024 20:58:57 TOP STITCHER by Bradley Goldman M.D. [email or web address]
[2024-10-09 12:10] VITALS: BMI 48.2
[2024-10-09 12:34] VITALS: BP 143/101; PULSE 123
== END 2024-10-09 11:47 | disposition home or self-care (01) ==
LOC: CDL 11:47
PROVIDERS: PCP Family Medicine; Visit Provider Internal Medicine
DX: R07.9 Chest pain, unspecified (principal); R06.02 Shortness of breath
CPT/HCPCS: 93017

== ENCOUNTER → 2024-11-16 10:45 | Outpatient (BNVA) | payer OTHER, SELFPAY | PROVIDERS: PCP Family Medicine; Visit Provider Internal Medicine | DX: E03.9 Hypothyroidism, unspecified (principal); R00.0 Tachycardia, unspecified; E66.01 Morbid (severe) obesity due to excess calories; Z68.42 Body mass index [BMI] 45.0-49.9, adult | CPT/HCPCS: 36415; 83036; 84439; 84443; 84480; 86376; 86800 ==

== ENCOUNTER → 2025-01-01 11:35 | Outpatient (BNVA) | payer OTHER, SELFPAY | PROVIDERS: PCP Family Medicine; Visit Provider Orthopaedic Surgery | DX: M25.569 Pain in unspecified knee (principal) | CPT/HCPCS: 73560; 73565 ==

== ENCOUNTER 2025-01-29 16:09 | Outpatient (CLI) | payer OTHER, SELFPAY ==
--- NOTE | 2025-01-29 16:00 | MR_ITS ---
WS: [id number] MRI LEFT KNEE NONCONTRAST TECHNIQUE: Axial PD, coronal PD fat sat, coronal PD, sagittal PD, and sagittal PD fat-sat images obtained. CLINICAL INFORMATION: knee pain COMPARISON: MRI 2011 FINDINGS: High-grade complete tear of the ACL. No normal ACL fibers visualized. Normal PCL. Contusion with small nondisplaced fracture involving the posterior medial tibial plateau. No acute appearing meniscal tears. Distal quadriceps and patellar tendons are intact. Grade III chondromalacia patella worse involving the medial patellar facet with full-thickness cartilage defects. Normal lateral collateral ligament. Grade 1-2 injury of the MCL with fluid and edema along the MCL fibers. Normal popliteus. Normal popliteal fossa. Medial and lateral patellar retinacula appear intact. MR/MR knee LT wo con* [id number] IMPRESSION: 1. High-grade complete tear of the ACL. No normal ACL fibers visualized. This was previously completely torn in 2011. Recommend correlation for interval repa ir. 2. Normal PCL. 3. Contusion with a small nondisplaced fracture involving the posterior medial tibial plateau. No displaced fragments. 4. No acute appearing meniscal tears. 5. Grade 1-2 injury of the MCL. 6. Grade III chondromalacia patella. Outbridge grading:
== END 2025-01-29 16:10 | disposition home or self-care (01) ==
LOC: RAD 16:10
PROVIDERS: PCP Family Medicine; Visit Provider Orthopaedic Surgery
DX: S83.512A Sprain of anterior cruciate ligament of left knee, initial encounter (principal); S80.02XA Contusion of left knee, initial encounter; S82.145A Nondisplaced bicondylar fracture of left tibia, initial encounter for closed fracture; X58.XXXA Exposure to other specified factors, initial encounter; R93.6 Abnormal findings on diagnostic imaging of limbs; M22.42 Chondromalacia patellae, left knee
CPT/HCPCS: 73721

== ENCOUNTER → 2025-04-19 08:17 | Outpatient (BNVA) | payer OTHER, SELFPAY | PROVIDERS: PCP Family Medicine; Visit Provider Orthopaedic Surgery | DX: M25.562 Pain in left knee (principal); M23.92 Unspecified internal derangement of left knee; S83.512A Sprain of anterior cruciate ligament of left knee, initial encounter; W19.XXXA Unspecified fall, initial encounter | CPT/HCPCS: 73560; 73565 ==

== ENCOUNTER 2025-05-11 11:29 | Day surgery (SDC) | payer OTHER, SELFPAY ==
[2025-05-11] VITALS (23 sets, daily range): BP systolic 115–160; BP diastolic 65–102; PULSE 70–99; RESP 10–23; TEMP 36.1–36.5; O2SAT 90–100; BMI 47.6
--- NOTE | 2025-05-11 12:42 | P.ANESASSM_ITS ---
Pre-Anesthetic Assessment Height/Weight: Height 5 ft 6 in Weight 295 lb Temp Pulse Resp BP Pulse Ox O2 Del Method 97.1 F L 82 18 160/102 94 Room Air 05/11/25 11:54 05/11/25 11:54 05/11/25 11:54 05/11/25 11:54 05/11/25 11:54 05/11/25 11:54 Preop Diagnosis: Knee pain Operation Date: 05/11/25 13:25 Proposed Procedures p LEFT Knee Arthroscopy(Left) - Devendra Freeman MD s POSSIBLE LEFT Anterior Cruciate Ligament Reconstruction with Donor Graft(Left) - Devendra Freeman MD Was Beta Travis taken within 24 hours: N/A Was Clonidine taken within 24 hours: N/A Last intake: Intake Last Liquid Date 05/10/25 Last Liquid Time 23:00 Last Solid Date 05/10/25 Last Solid Time 23:00 Social No alcohol and No tobacco Exam alert, oriented x 3, clear to auscultation bilaterally and regular rate & rhythm Airway Submandibular: within normal limits Cervical ROM: within normal limits Mallampati: Class III Dentition: full Anesthetic Plan ASA status: 3 Anesthesia: General Other: Patient states that during a previous anesthetic she was told they had difficulty advancing an airway and that she had a very small airway NPO since yesterday evening History of hypertension on metoprolol and spironolactone Patient follows with cardiology, recently seen and cleared from a cardiac standpoint. 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 Plan for general anesthesia with LMA Medications/Allergies Home Medications ?Medication ?Instructions ?Recorded ?Confirmed ?Last Taken ?Type vits no.124-ferrous fum 1 tab PO DAILY 05/10/25 01/20/20 06:30 History 27 mg iron-folic acid 800 mcg tablet ( Vitamin) acetaminophen 500 mg tablet 500 mg PO Q6H PRN Pain 05/10/25 05/09/25 History (Tylenol Extra Strength) ibuprofen 400 mg tablet 400 mg PO TID PRN Pain 01/2605/10/25 05/09/25 History spironolactone 50 mg tablet 100 mg PO DAILY 07/09/24 0 05/10/25 05/09/25 History diphenhydramine HCl 50 mg capsule 50 mg PO DAILY PRN A llergy Symptoms 07/16/24 05/10/25 Unknown History metoprolol succinate 25 mg 25 mg PO DAILY #90 tabs 05/10/25 05/11/25 Rx tablet,extended release 24 hr hydroxyzine HCl 50 mg tablet 50 mg PO QID PRN anxiety/ insomnia 02/03/25 05/11/25 05/11/25 Rx #120 tabs [employer]ICE SERVICES ASSISTANT Thyroid 60 mg PO DAILY 02/10/2504/1405/11/25 History buspirone 10 mg tablet 10 mg PO TID #90 tabs 05/10/25 05/09/25 Rx duloxetine 60 mg capsule,delayed 120 mg (2 x 60 mg) PO DAILY #60 02/10/25 05/10/25 05/09/25 Rx release (Cymbalta) caps prazosin 5 mg capsule 5 mg PO .HS #30 caps 5 05/10/25 05/09/25 Rx metformin 1,000 mg tablet 1,000 mg PO BID 05/10/2505/09/25 History trazodone 100 mg tablet 100 mg PO .HS insomnia 05/1005/10/25 05/09/25 History Allergies Allergy/AdvReac Type Severity Reaction Status Date / Time fluoxetine (From Prozac) Allergy Severe ALGY-Rash Verified 04/19/25 08:24 sertraline (From Zoloft) Allergy Severe ADR-Nausea Verified 04/19/25 08:24 Current Medications Generic Name Dose Route Start Last Admin Trade Name Freq PRN Reason Stop Dose Admin Sodium Chloride 1,000 mls @ 30 mls/hr 05/11/25 11:45 05/11/25 12:06 Sodium Chloride 0.9% IV 05/12/25 11:44 30 mls/hr .Q24H LOLI Administration PFSH Anesthesia Medical History Psychiatric care History of gestational diabetes Had GDM in fourth of Obesity Depression Hypothyroidism, acquired Surgical History History of dilation and curettage (09/27/18) Diagnosis: Incomplete at [address] Gr at [facility] in [place], [place]. History of section, low transverse (08/28/15) PLTCS. Dx: CPD large fetus (10 lb [address] oz). [address] Barragan at [facility] in [place], [place]. Documented LTCS with b/l inferior extensions. 2 layer closure. History of arthroscopy of knee (05/02/11) Performed by Dr. Peraza at [facility] in [place], [place] History of tonsillectomy and adenoidectomy (12/01/01) Family History Mother Hypertension Diabetes Family/Other Diabetes paternal aunt Grandfather Heart disease maternal Grandmother Thyroid disease maternal Social History Smoking and tobacco/nicotine status: never used tobacco/nicotine Second hand smoke exposure: Yes Alcohol intake: current Alcohol intake frequency: holidays/special occasions only Alcohol type: wine Substance/Drug Use: never Data Anesthesia Cardiac Studies: Cardiac Event Monitor 07/16/24
[2025-05-11 13:29] LABS: OR HCG Qualitative Urine Negative (Negative)
--- NOTE | 2025-05-11 13:29 | W.PM.OPSUD ---
Surgery/Procedure H&P Update DATE OF PROCEDURE: May 11, 2025 DATE H&P PERFORMED: 04/19/25 H&P UPDATE INFORMATION: I have reviewed H&P completed within last 30 days, I have examined patient prior to procedure and No changes to prior documentation PREOP DIAGNOSIS: Knee pain PLANNED PROCEDURE: Operation Date: 05/11/25 13:25 Proposed Procedures p LEFT Knee Arthroscopy(Left) - Devendra Freeman MD s POSSIBLE LEFT Anterior Cruciate Ligament Reconstruction with Donor Graft(Left) - Devendra Freeman MD
[2025-05-11] MEDS: ceFAZolin 3,000 MG in sodium chloride 0.9% (plus) 100 ML 200 MG IV (13:32)
[2025-05-11] MEDS: BUPivacaine 0.5% INJ 30 mL INJECTION (15:09)
[2025-05-11] MEDS: fentaNYL 50 mcg/mL INJ 2mL IVP ×2 (15:44→15:52)
--- NOTE | 2025-05-11 15:45 | ANE.PACU2 ---
Inpatient post-anesthesia follow up: Airway intact: Yes Vital signs: Temperature 97.1 F Pulse Rate 82 Respiratory Rate 18 Blood Pressure 160/102 Pulse Oximetry 94 Oxygen Delivery Me thod Room Air Oxygen Flow Rate 8 Fraction of Inspir ed Oxygen Hydration adequate: Yes Nausea and vomiting: No Pain level: 2 Mental status: Baseline
[2025-05-11] MEDS: HYDROmorphone 1 mg/mL INJ 1ml 0.5 MG IVP ×2 (16:03→16:13)
--- NOTE | 2025-05-11 16:03 | ANES.PROC ---
Anesthesia Procedures Procedure/Date: 05/11/25 Nerve Block ^: Nerve Block 1: Main Anesthesia: general anesthesia Time Out Performed: Yes Consent: requested by attending/covering physician and from patient Laterality: Left Nerve block location: adductor canal Anesthesia monitors applied: pulse oximetry, EKG, BP cuff and oxygen Nerve block position: supine Anesthetic Used: ropivicaine 0.5% Amount of anesthesia used (mL): 20 Nerve Stimulator Used?: No Interscalene/Femoral BLK: other needle (pjunk 4inch) Injection: neg aspiration of heme Patient Tolerated Procedure: well Complications: none
--- NOTE | 2025-05-11 16:22 | P.OP_ITS ---
Operative Report Date of procedure: May 11, 2025 Surgeon: Devendra Freeman MD Procedure: Preoperative diagnosis: Internal derangement of the left knee Postoperative diagnosis: Grade II/III chondromalacia posterior patella and lateral femoral condyle, torn anterior horn lateral meniscus, torn ACL of the left knee Procedure: Diagnostic left knee arthroscopy with chondroplasty partial patella lateral femoral condyle, partial lateral meniscectomy of the anterior horn, ACL stump debridement, ACL reconstruction using allograft tendon. Surgeon: Devendra Freeman MD Jockey Room Custodian: TRAVIS Boucher's assistance was necessary for positioning the patient on the operative table, assistance during the procedure, assistance with closure wounds and placement of dressings. Transfer the patient to the PACU Anesthesia: General EBL: 50 cc Indications: Jeanette is a 34-year-old white female who sometime back fell or jumped off her porch injuring her knee. She has pain swelling difficulty with ambulation. Eventually an MRI was obtained demonstrating a torn anterior cruciate ligament within her left knee. She was seen in the orthopedic clinics and after evaluation finds that she had positive Moses's test positive exam for ACL tear as well as positive findings on the MRI she was offered a diagnostic knee arthroscopy with all indicated procedures including ACL reconstruction. After discussing graft options she elected proceed with an allograft for her reconstruction at this time. All risk benefits treatment alternatives were discussed with her and she is agreeable to proceed with surgical intervention. Procedure: After obtaining her consent patient was taken to the operating room placed on the op table supine position general anesthetic administered. Once good anesthesia was achieved foot of bed was dropped. Left leg was placed in a leg enriquez and right leg was padded appropriately. Left lower extremities prepped and draped usual fashion. After surgical timeout standard anterior medial and lateral portals were made with #11 blade. Camera cannulas placed a lateral portal on the tour the knee was undertaken. There is hypertrophic synovium in fat pad within the knee that had to be debrided for visualization. There is grade II/III chondromalacia of the central portion of the weightbearing surface of the patella that was debrided down to stable cartilaginous base with mechanical shaver. IT groove was clear. Medial gutter was clear. Medial compartment demonstrated softening of the distal femoral articular surface but no breakdown. Meniscus was intact. Intercondylar notch demonstrated absent ACL and portion of the ACL stump and scar tissue within. Lateral compartment demonstrated anterior horn tear of the lateral meniscus that was debrided down to stable cartilaginous base mechanical shaver. Central weightbearing surface of the lateral condyle also had grade II/III chondromalacia the also debrided stable cartilaginous base. Evaluation of the posterior horn the lateral meniscus demonstrated some mild degenerative changes on the inner edge but no through and through tears. At this point using a thermal probe mechanical shaver stump of the ACL was removed from the intercondylar notch as well as other scar tissue within the area for better visualization. Attention was turned towards allograft that was thawed on the back table. There is already presentation as being anterior tibialis tendon. It was then sized to a size 9 sizing tube. It was set back in a moist sponge for later use. Therefore at this time anterior incision was made over the pes anserinus centering over the anterior and posterior edge of the tibia. Sharp dissection taken down to subcutaneous tissue electrocautery used for hemostasis. Blunt dissection with digital palpation took the dissection all the way down to the periosteum of the anterior tibia. How tibial drill guide was then placed through the medial portal of the knee knee was brought out to full extension and drill guide was aligned with the joint line. Guidepin was placed up through this into the intercondylar notch. Alex guide was removed and pin was tapped on pin demonstrating good positioning the footprint of the ACL and not impinging upon the PCL. There was then reamed with a #[address] to the articular surface. Excess bone cartilage fragments were removed with a mechanical shaver. Impingement ventura was then placed up this tunnel into the intercondylar notch and then notchplasty was done with a barrel bur to allow for this impingement ventura not to have any impingement on the superior or lateral aspects of the intercondylar notch. Attention was turned back towards the graft. Graft was placed in the aper fix femoral anchor and tensioned down. A watermark was placed on it for identification of the depth into the femoral tunnel. Aper fix femoral locking device and graft were then placed on up through the tibial tunnel and directly visualized going in the femoral tunnel and impacted until watermark reached the bone edge. At this point locking device was engaged then guide was removed. At this point the sutures from the graft were then placed on the hand tensioner over the anterior tibia. Guidepin was placed up through this into through the tibial tunnel between the graft edges. Initial sleeve of the aper fix was placed up within this tunnel. Then fixation screw was then placed up over the same guidewire wire and driven into these anchoring device. This was sunk all the way down to bone level. Excess suture was cut away. Direct examination of the ACL demonstrated intact ACL and good function on Moses's testing. All wounds were washed with sterile irrigation. Deep structure reapproximated 0 Vicryl [id number] sutures. Subcutaneous was reapproximated 0 Vicryl interrupted sutures. Skin was closed with running 3-0 Prolene suture as well as [id number] sutures for the portals. Wounds are cleaned and dried dressed with Xeroform gauze, sterile gauze dressing, Kerlix wrap and Jeremy wrap for compression. Patient was awakened transferred to cover room in stable condition
== END 2025-05-11 17:49 | disposition home or self-care (01) ==
PROVIDERS: PCP Family Medicine; Visit Provider Orthopaedic Surgery
PROC: (CPT 29870; principal; 2025-05-11 13:25)
PROC: (CPT 27407; 2025-05-11 13:25)
DX: M22.42 Chondromalacia patellae, left knee (principal); S72.425A Nondisplaced fracture of lateral condyle of left femur, initial encounter for closed fracture; S83.282A Other tear of lateral meniscus, current injury, left knee, initial encounter; S83.512A Sprain of anterior cruciate ligament of left knee, initial encounter; W17.89XA Other fall from one level to another, initial encounter; E03.9 Hypothyroidism, unspecified; E66.9 Obesity, unspecified; Z68.42 Body mass index [BMI] 45.0-49.9, adult; I10 Essential (primary) hypertension; Z79.84 Long term (current) use of oral hypoglycemic drugs
CPT/HCPCS: 29888; 29880; 81025; C1713; C1762; J0131; J0690; J1100; J1171; J1885; J2250; J2405; J2704; J3010; J3490; J7030

== ENCOUNTER 2025-08-14 05:00 | Outpatient (RCR) | payer OTHER, SELFPAY | END 2025-09-12 23:59 | disposition home or self-care (01) | LOC: SPT 05:00 | PROVIDERS: PCP Family Medicine; Visit Provider Orthopaedic Surgery | DX: Z98.890 Other specified postprocedural states (principal) | CPT/HCPCS: 97110; 97161 ==